=== PATIENT | female | born 1940 | race Caucasian/White ===

== ENCOUNTER 2017-01-01 18:58 | Emergency (ER) | payer MEDICARE ==
[~2017-01-01] VITALS: Ht 152.4 cm; Wt 40.9 kg
[~2017-01-01 18:58] MED LIST: ALBU8.5H2 INHALATION; AMLO5TAB2 PO; CITA20TA11 PO; DOCU240C41 PO; IBUP400T22 PO; KLO5T PO; LOPE1TAB13 PO; OMEP40CA3 PO; ONDA-53 PO; OXYC-466 PO; PHEN177L2 PO; POLY17PO6 PO; PRAM0.252 PO; PROP10TA8 PO; TIZA2CAP9 PO; VENL75TA3 PO; [UNRECOGNIZED DRUG - CODE] RC; [UNRECOGNIZED DRUG - REMARK] PO
[2017-01-01 19:02] VITALS: BP 134/69; PULSE 80; RESP 16; O2SAT 97
[2017-01-01 19:44] LABS: BASOPHILS % (AUTO) 0.3 % (0-3); EOSINOPHILS % (AUTO) 1.1 % (0-5); MONOCYTES % (AUTO) 11.7 % (4-12); Mean Corpuscular Hemoglobin 30.6 pg (27.0-35.0); Mean Corpuscular Volume 95.8 fL (81-100); NEUTROPHILS % (AUTO) 60.4 % (40-74); Platelet Count 347 bil/L (150-400)
[2017-01-01] MEDS ORDERED: Ondansetron 2 mg/mL 2 mL Inj IVPUSH PRN (19:50)
--- NOTE | 2017-01-01 19:57 | ED.REPORT ---
HPI-Back Pain 40 and Over Date of Service Jan 01, 2017 ED Provider: Dr. Moon Pt is a 76 year old female with a history of chronic back pain and metastatic colon CA who presents to the ED complaining of bilateral lower back pain that radiates to the lower abdomen onset 2 months ago worse for the past 2 days. She c/o associated constipation, urinary frequency and urgency, decreased urination , lightheadedness, generalized weakness, appetite change, diaphoresis, chills, and vomiting several times a day. Pt. denies change in chronic SOB and cough or any other symptoms at this time. Pt rates her back pain as 10/10 in severity at its worst. She has been taking her prescribed Oxycodone without relief. Oncologist: Dr. Meredith Nursing Notes Stated Complaint: BACK PAIN Chief Complaint: Female Abdominal Pain Nursing Notes Reviewed: Yes Allergies: Coded Allergies: nalbuphine (Verified Allergy, Intermediate, Hallucinations, 01/01/17) Sulfa (Sulfonamide Antibiotics) (Verified Allergy, Unknown, 01/01/17) Scheduled ([sleeping aid otc]) 2 CAPSULE PO HS Amlodipine (Amlodipine) 5 Mg Tablet 5 MG PO DAILY Citalopram (Citalopram) 20 Mg Tablet 20 MG PO DAILY Fentanyl 50 mcg/hr Patch (Fentanyl 50 mcg/hr Patch) 50 mcg/hr Patch.td72 1 PATCH TRANSDERM Q3D Ibuprofen (Ibuprofen) 400 Mg Tablet 400 MG PO TID Loperamide/Simethicone (Imodium Multi-Symptom Rel Cplt) 1 Each Tablet 1 EACH PO prn Omeprazole (Prilosec) 40 Mg Capsule. 40 MG PO DAILY Ondansetron (Ondansetron) 4 Mg Tablet 4-8 MG PO Q6 HOUR Pramipexole Dihydrochloride (Mirapex) 0.25 Mg Tablet 1-2 TAB PO HS Propranolol HCl (Propranolol HCl) 10 Mg Tablet 10 MG PO BID Tizanidine (Tizanidine) 2 Mg Capsule 2 MG PO HS Venlafaxine (Venlafaxine) 75 Mg Tablet 75 MG PO TID Scheduled PRN Albuterol HFA (Proair HFA) 8.5 Gm Hfa.aer.ad 2 PUFFS INHALATION QID PRN PRN For Congestion Clonazepam (Clonazepam) 0.5 Mg Tablet 0.5 MG PO QID PRN PRN For Anxiety Docusate Calcium (Stool Softener) 240 Mg Capsule 240 MG PO DIRECTED PRN PRN For Constipation Docusate Sodium/Benzocaine (Enemeez Plus Mini Enema) 5 Ml Enema 5 ML RC DIRECTED PRN PRN For Constipation Phenylephrine/Dm/Acetaminop/GG (Mucinex Lyxd-Sez-Hflzewvuly Lq) 177 Ml Liquid 177 ML PO DAILY PRN PRN cold Polyethylene Glycol 3350 (Miralax) 17 Gm Powd.pack 17 GM PO DIRECTED PRN PRN For Constipation oxyCODONE-Acetaminophen 10-325 mg (oxyCODONE-Acetaminophen 10-325 mg) 1 Each Tablet 1 TABLET PO BID PRN PRN For Pain General Time Seen by MD: 19:56 Chief Complaint Back pain Hx Obtained From: Patient Arrived By: Walk-in Sudden in Onset?: No Onset Occurred: More than a week ago... Symptom Duration: More than a week... (2 months) Location: : Perispinal lumbar Quality: Painful Radiation: : Abdomen Severity: Current: Moderate Severity: Maximum: Moderate Recent Healthcare: Recent doctor visit, Recent hospitalization, Previous diagnosis Similar Sx Previous: Yes Past Medical History Past Medical History 1. Degenerative disk disease of the lumbar. 2. Multiple external otitis of the left ear. 3. History of anxiety and depression. 4. Hypertension. 5. Hyperlipidemia. 6. Osteoporosis. 7. Restless legs syndrome. 8. Metastatic colon CA 9. History of right breast cancer 1995 treated with breast conservation therapy, adjuvant chemotherapy and hormonal therapy 10. Cervical spondylolysis 11. Anemia 12. History of TIA 13. History of GERD and Sotelo's esophagus 14. History of C. difficile in the past Reports: GERD Past Surgical History Port-A-Cath placement October 29, 2014 Status post laparoscopy followed by laparotomy, cholecystectomy, cholangiogram, and right hemicolectomy on 10/13/2014 Breast conservation surgery in 1995 for breast CA Cervical spine fusion in 2008 3 separate ear operations in the 1960s and 1980s Family History The patient's daughter has asthma, and patient's son has alcohol issues. Reviewed, not relevant Smoking History Former Smoker Social History Drug Use: Denies drug use Ambulatory Status Independent Review of Systems Constitutional: Reports: Chills, Weakness - generalized Respiratory: Denies: Non-productive cough, Shortness of breath GI: Reports: Abdominal pain, Anorexia, Constipation, Nausea, Vomiting Female: Reports: Urinary frequency, Urinary urgency, Urination decreased Musculoskeletal: Reports: Back pain Neurologic: Reports: Lightheaded Complete sys rev & neg: except as marked. Skin: Reports Diaphoresis Physical Exam Initial Vital Signs Vital Signs (First) Date Time Temp Pulse Resp B/P Pulse Ox O2 Delivery O2 Flow Rate FiO2 01/01/17 19:02 36.4 80 16 134/69 97 Room Air Initial VS: Reviewed, Vital signs normal Head / Eyes: Atraumatic, Normocephalic Neck: Supple, Full range of motion Extremities: Vascular intact, Neuro intact Skin: Warm, Dry, No cyanosis Psychiatric: Mood/affect normal, Behavior normal General/Constitutional: Awake, Alert, No acute distress, Cooperative, Not toxic appearing Respiratory / Chest: No respiratory distress Diminished Breath Sounds: Positive: Decreased bilateral Wheezing / Retractions: Positive: Wheezing expiratory (Increased on left ) Cardiovascular: Heart rate NL, Regular rhythm, Heart sounds NL, No murmurs Abdomen: Soft, No guarding, No rebound Tenderness/Guarding/Rebound: Positive: Tender suprapubic (mild) Back: Full range of motion, Painless range of motion Left-sided CVAT Neurologic: Oriented X3, Speech NL, No motor deficits, No sensory deficits, Memory NL ENT: Airway patent Mouth: Positive: Mucous membranes dry Interpretation & Diagnostics Lab Results Interpretation Result Diagram: 01/01/17192901/01/171929 Test 01/01/17 19:30 01/01/17 22:00 White Blood Count 7.4th/mm3 (3.8-10.1) Red Blood Count 3.59mil/mm3 (3.90-5.20) Hemoglobin 11.0g/dL (12.0-15.6) Hematocrit 34.4% (35.0-46.0) Mean Corpuscular Volume 95.8fL (81-100) Mean Corpuscular Hemoglobin 30.6pg (27.0-35.0) Mean Corpuscular Hemoglobin Concent 32.0% (32.0-37.0) Red Cell Distribution Width 14.9% (12.3-15.4) Platelet Count 347bil/L (150-400) Neutrophils (%) (Auto) 60.4% (40-74) Lymphocytes (%) (Auto) 26.2% (14-46) Monocytes (%) (Auto) 11.7% (4-12) Eosinophils (%) (Auto) 1.1% (0-5) Basophils (%) (Auto) 0.3% (0-3) Sodium Level 137mEq/L (134-144) Potassium Level 4.1mEq/L (3.5-5.2) Chloride Level 100mEq/L (97-108) Carbon Dioxide Level 23mmol/L (18-29) Blood Urea Nitrogen 17mg/dL (8-27) Creatinine 0.77mg/dL (0.57-1.00) Estimat Glomerular Filtration Rate 105mL/min (>59) Glucose Level 79mg/dL (60-99) Calcium Level 9.2mg/dL (8.5-10.1) Magnesium Level 2.4mg/dL (1.6-2.6) Total Bilirubin 0.2mg/dL (0.0-1.2) Aspartate Amino Transf (AST/SGOT) 27U/L (0-50) Alanine Aminotransferase (ALT/SGPT) 21U/L (0-32) Alkaline Phosphatase 617U/L (25-165) Total Protein 6.9g/dL (6.4-8.4) Albumin 3.6g/dL (3.4-5.0) Lipase 31U/L (13-60) Hold [place] Top Tube Received (Received) Urine Color Straw (YELLOW) Urine Appearance Clear (CLEAR,HAZY) Urine pH 6.5 (5.0-8.0) Urine Specific [place] 1.037 (1.003-1.035) Urine Protein Negativemg/dL (NEG,TRACE) Urine Glucose (UA) Negativemg/dL (NEGATIVE) Urine Ketones Negativemg/dL (NEGATIVE) Urine Occult Blood Negative (NEGATIVE) Urine Nitrite Negative (NEGATIVE) Urine Bilirubin Negative (NEGATIVE) Urine Urobilinogen Normalmg/dL (NORMAL) Urine Leukocyte Esterase Negative (NEGATIVE) Urine RBC 0-2/hpf (0-2) Urine WBC 0-5/hpf (0-5) Urine Epithelial Cells Occasional/hpf (NONE-MOD) Urine Crystals None seen (NONE SEEN) Urine Bacteria None/hpf (NONE-FEW) Urine Hyaline Casts None/lpf (NONE) Urine Granular Casts None seen (NONE SEEN) Urine Waxy Casts None seen (NONE SEEN) Urine Red Blood Cell Casts None seen (NONE SEEN) Urine White Blood Cell Casts None seen (NONE SEEN) Urine Mucus None seen (None Seen) Urine Trichomonas None seen (NONE SEEN) Urine Yeast None (NONE SEEN) Urinalysis Comment None Urine Culture Reflexed Not indicated CT Abd / Pelvis Interpretation IMPRESSION: 1. Increasing pulmonary, liver, retroperitoneal and peritoneal/omental metastasis. 2. Worsening abnormal enhancement in the kidneys right greater than left likely representing metastasis. Pyelonephritis is also possible. 3. Stable moderate intra-and extrahepatic biliary ductal dilatation and pancreatic ductal dilatation. Dictated by: José Luis Thomas M.D. on 01/01/2017 at 21:51 Approved by: José Luis Thomas M.D. on 01/01/2017 at 22:06 Study type: Abdominal CT IV contrast, Abdom CT oral contrast Interpretation / Wet Read by: Interpret - Radiologist Re-Eval/Medical Decision Med Decision/Clinical Course The patient has known metastatic cancer and is having poor pain control. She has bilateral flank pain worse on the left she does not have any signs of infection. CT shows that she has an infiltrative process of her kidneys which is likely related to her cancer. The patient had her medication changed to fentanyl and was discharged home. A partial list of differential diagnoses considered were pyelonephritis, metastatic disease to the spine, and metastatic disease to the retroperitoneum. Source of Hx: Old records Re-Evaluation/Progress : Time of Eval: 01:36 Patient Status: Moderate relief, Pain improved Re-Evaluation/Progress Note: Pt rechecked. Informed pt of plan for discharge. Pt understands and agrees with plan for discharge. F/U instructions and RTER warnings given. All questions addressed. Counseled Regarding: Diagnosis, Lab results, Need for follow-up, When/why to return to ED Discharge & Departure Impression: Primary Impression: Cancer related pain Disposition: Home Discharge Condition All VS Reviewed: Yes Condition: Stable Patient Instructions: Back Pain (ED) Additional Instructions: The cause of your pain is uncertain but likely related to cancer. Change the Fentanyl patch every 3 days. Make sure to remove the old patch before applying the new. Continue to take immediate acting oxycodone but stop the long acting OxyContin. Make an appointment to meet with Dr. Meredith next week to discuss today's visit and imaging. Return to the emergency department if you experience fever or any new or worsening symptoms. Referrals: Austin Lawton MD (PCP) Kyraibyuki Attestation Portions of this note were transcribed by Ling Mills and Geraldo Douglass. I, Dr. Moon personally performed the history, physical exam and medical decision- making; I reviewed and confirmed the accuracy of the information in the transcribed note. Signed by: Stanley Ríos, 01/01/17 copies to: Austin Lawton MD, Jena M MD Jan 01, 2017 19:57 Ling Mills Jan 01, 2017 20:09 GERALDO DOUGLASS Jan 01, 2017 21:06
[2017-01-01] MEDS: HYDROmorphone 0.5 mg/0.5 mL iSecure Syringe IVPUSH PRN ×3 (19:59→21:46)
[2017-01-01 20:09] LABS: Magnesium 2.4 mg/dL (1.6-2.6)
[2017-01-01] MEDS ORDERED: 0.9% Sodium Chloride 1,000 ML IV ONE (20:20)
[2017-01-01] MEDS ORDERED: Iohexol 300 mg/mL 30 mL Inj PO ONE (20:20)
--- NOTE | 2017-01-01 22:07 | DRSVH ---
PROCEDURE: CT ABDOMEN AND PELVIS WITH CONTRAST ([id number]) INDICATIONS: colon CA with increased pain TECHNIQUE: After the administration of oral and intravenous contrast, 5 mm thick sections acquired from the diap hragms to the symphysis. 5 mm thick coronal and sagittal reformats were performed. For radiation do se reduction, the following was used: automated exposure control, adjustment of mA and/or kV accordi ng to patient size. COMPARISON: 11/27/2016 CT FINDINGS: Image quality: Excellent. ABDOMEN: Lung bases: Increase in size of innumerable bibasilar pulmonary nodules. Normal heart size.. Solid organs: Stable moderate intrahepatic biliary ductal dilatation and pancreatic ductal dilatation . There are now four ill-defined right lobe of the liver hepatic masses the largest of which is incre ased in size measuring 2.4 CM consistent with metastasis. The pancreas itself, spleen, and adrenal gl ands are normal. Heterogeneous abnormal right renal parenchymal enhancement most consistent with hypo enhancing masses. Similar but less prominent findings in the left kidney. No hydronephrosis. Peritoneum and bowel: The colon contains a moderate amount of stool. Small bowel is normal. Appendix not identified. There are no secondary signs of appendicitis. There is fluid in the pelvis with nodul ar thickening in the peritoneal cul-de-sac the largest of which measures 1.5 CM. Small omental metast asis. Nodes and vessels: Moderate retroperitoneal lymphadenopathy exerts mass effect upon the distal infer ior vena cava which is poorly seen.. Miscellaneous: No ventral hernias. PELVIS: Genitourinary: Bladder wall thickness is normal. Miscellaneous: No inguinal hernias or adenopathy. Bones: No suspicious bony lesions. No vertebral body compression fractures. IMPRESSION: 1. Increasing pulmonary, liver, retroperitoneal and peritoneal/omental metastasis. 2. Worsening abnormal enhancement in the kidneys right greater than left likely representing metastas is. Pyelonephritis is also possible. 3. Stable moderate intra-and extrahepatic biliary ductal dilatation and pancreatic ductal dilatation. Dictated by: José Luis Thomas M.D. on 01/01/2017 at 21:51 Approved by: José Luis Thomas M.D. on 01/01/2017 at 22:06
[2017-01-01 22:43] LABS: APPEARANCE,URINE CLEAR (CLEAR,HAZY); COLOR,URINE STRAW (YELLOW); OCCULT BLOOD,URINE NEGATIVE (NEGATIVE); PH,URINE 6.5 (5.0-8.0); UROBILINOGEN,URINE NORMAL (NORMAL)
[2017-01-01 23:43] VITALS: BP 154/82; PULSE 82; RESP 18; O2SAT 95
[2017-01-02] MEDS ORDERED: FENT1PAT9 TRANSDERM (01:39)
[2017-01-02] MEDS ORDERED: HepLOK Flush 100 unit/mL 5 mL Inj ONE (01:50)
[2017-01-02 01:57] VITALS: BP 145/84; PULSE 95; RESP 18; O2SAT 97
== END 2017-01-02 01:58 | disposition home or self-care (01) ==
LOC: SED 18:58
DX: G89.3 Neoplasm related pain (acute) (chronic) (principal); M54.5 Low back pain; E78.5 Hyperlipidemia, unspecified; F32.9 Major depressive disorder, single episode, unspecified; I10 Essential (primary) hypertension; K21.9 Gastro-esophageal reflux disease without esophagitis; F41.9 Anxiety disorder, unspecified; Z88.2 Allergy status to sulfonamides; Z85.038 Personal history of other malignant neoplasm of large intestine; Z85.3 Personal history of malignant neoplasm of breast; Z86.73 Personal history of transient ischemic attack (TIA), and cerebral infarction without residual deficits; Z88.8 Allergy status to other drugs, medicaments and biological substances; Z87.891 Personal history of nicotine dependence
CPT/HCPCS: 36415; 74177; 80053; 81000; 83690; 83735; 85025; 96361; 96374; 96375; 99285; J1170; J1642; J2405; J7030; Q9967

== ENCOUNTER 2017-01-19 13:18 | Observation (INO) | payer MEDICARE ==
[~2017-01-19] VITALS: Ht 152.4 cm; Wt 43.2 kg
[~2017-01-19 13:18] MED LIST changes: +FENT1PAT9 TRANSDERM
[2017-01-19 13:50] VITALS: BP 106/65; PULSE 88; RESP 16; O2SAT 96
--- NOTE | 2017-01-19 14:07 | ED.REPORT ---
HPI-Abd Pain F 40 and Over Date of Service Jan 19, 2017 ED Provider: Yon Martines DO Pt is a 76 y/o female w/ a hx of metastatic colon CA on experimental therapy, prior R breast CA, DDD of lumbar spine, osteoporosis, HTN, HLD, presenting to the ED c/o intractable lower abdominal pain with radiation to the back. The patient has been seeing palliative care physician Dr. Lazo regarding her colon cancer-related abdominal and back pain and is being treated with Fentanyl patches and Oxycodone PRN. Per her note there is a concern that her son may be stealing some of the patches for his own use as he is an alleged active heroin user. She has also been experiencing anorexia, nausea, vomiting, and diarrhea after taking laxatives. She mostly vomits after eating. Her pain today is similar to what it has been previously but remains to be uncontrolled. She denies SOB, cough, fever. She was seen by Dr. Lazo today and recommended that she come here to the ED. Nursing Notes Stated Complaint: PAIN Chief Complaint: Female Abdominal Pain Nursing Notes Reviewed: Yes Allergies: Coded Allergies: Sulfa (Sulfonamide Antibiotics) (Verified Allergy, Unknown, 01/19/17) nalbuphine (Verified Adverse Reaction, Intermediate, Hallucinations, ) Scheduled ([sleeping aid otc]) 2 CAPSULE PO HS Amlodipine (Amlodipine) 5 Mg Tablet 5 MG PO DAILY Citalopram (Citalopram) 20 Mg Tablet 20 MG PO DAILY Fentanyl 50 mcg/hr Patch (Fentanyl 50 mcg/hr Patch) 50 mcg/hr Patch.td72 1 PATCH TRANSDERM Q3D Ibuprofen (Ibuprofen) 400 Mg Tablet 400 MG PO TID Loperamide/Simethicone (Imodium Multi-Symptom Rel Cplt) 1 Each Tablet 1 EACH PO prn Omeprazole (Prilosec) 40 Mg Capsule.dr 40 MG PO DAILY Ondansetron (Ondansetron) 4 Mg Tablet 4-8 MG PO Q6 HOUR Pramipexole Dihydrochloride (Mirapex) 0.25 Mg Tablet 1-2 TAB PO HS Propranolol HCl (Propranolol HCl) 10 Mg Tablet 10 MG PO BID Tizanidine (Tizanidine) 2 Mg Capsule 2 MG PO HS Venlafaxine (Venlafaxine) 75 Mg Tablet 75 MG PO TID Scheduled PRN Albuterol HFA (Proair HFA) 8.5 Gm Hfa.aer.ad 2 PUFFS INHALATION QID PRN PRN For Congestion Clonazepam (Clonazepam) 0.5 Mg Tablet 0.5 MG PO QID PRN PRN For Anxiety Docusate Calcium (Stool Softener) 240 Mg Capsule 240 MG PO DIRECTED PRN PRN For Constipation Docusate Sodium/Benzocaine (Enemeez Plus Mini Enema) 5 Ml Enema 5 ML RC DIRECTED PRN PRN For Constipation Phenylephrine/Dm/Acetaminop/GG (Mucinex Hjct-Xqq-Zohoznbcio Lq) 177 Ml Liquid 177 ML PO DAILY PRN PRN cold Polyethylene Glycol 3350 (Miralax) 17 Gm Powd.pack 17 GM PO DIRECTED PRN PRN For Constipation oxyCODONE-Acetaminophen 10-325 mg (oxyCODONE-Acetaminophen 10-325 mg) 1 Each Tablet 1 TABLET PO BID PRN PRN For Pain General Time Seen by MD: 14:05 Chief Complaint Abdominal pain Hx Obtained From: Patient Arrived By: Walk-in Sudden in Onset?: No Onset Occurred: Onset unknown Symptom Duration: Since onset Progression since Onset: Constant Location: : Abdomen lower Quality: Painful Radiation: : Back Severity: Current: Pain level 8 out of 10 Severity: Maximum: Pain level 10 out of 10 Recent Healthcare: Previous diagnosis Similar Sx Previous: Yes Past Medical History Past Medical History Notes: Oncologist: Masoud Palliative care: Keesha Lazo Past Medical History 1. Degenerative disk disease of the lumbar. 2. Multiple external otitis of the left ear. 3. History of anxiety and depression. 4. Hypertension. 5. Hyperlipidemia. 6. Osteoporosis. 7. Restless legs syndrome. 8. Metastatic colon CA 9. History of right breast cancer 1995 treated with breast conservation therapy, adjuvant chemotherapy and hormonal therapy 10. Cervical spondylolysis 11. Anemia 12. History of TIA 13. History of GERD and Sotelo's esophagus 14. History of C. difficile in the past Past Surgical History Port-A-Cath placement October 29, 2014 Status post laparoscopy followed by laparotomy, cholecystectomy, cholangiogram, and right hemicolectomy on 10/13/2014 Breast conservation surgery in 1995 for breast CA Cervical spine fusion in 2008 3 separate ear operations in the 1960s and 1980s Family History The patient's daughter has asthma, and patient's son has alcohol issues. Reviewed, not relevant Smoking History Former Smoker Social History Drug Use: Denies drug use Ambulatory Status Independent Review of Systems Constitutional: Denies: Fever Respiratory: Denies: Non-productive cough, Shortness of breath GI: Reports: Abdominal pain, Anorexia, Constipation, Nausea, Vomiting Musculoskeletal: Reports: Lumbar pain Complete sys rev & neg: except as marked. Physical Exam Vital Signs Vital Signs (First) Date Time Temp Pulse Resp B/P Pulse Ox O2 Delivery O2 Flow Rate FiO2 01/19/17 13:50 36.6 88 16 106/65 96 Room Air Initial VS: Reviewed, Vital signs normal Head / Eyes: Atraumatic, Normocephalic ENT: Mucous membranes moist, Conjunctiva normal Neck: Supple, Full range of motion Extremities: Vascular intact, Neuro intact, No swelling Skin: Warm, Dry, No cyanosis Neurologic: Alert, Oriented, Nonfocal Psychiatric: Mood/affect normal, Behavior normal, Normal thought content General/Constitutional: Awake, Alert, Cooperative, Not toxic appearing Distress / Hydration: Positive: Distress moderate Appearance / Presentation: Positive: Cachectic, Frail, In pain, Uncomfortable, Underweight Respiratory / Chest: Breath sounds NL, Breath sounds = bilat, No respiratory distress, No rales, No rhonchi, No wheezing Cardiovascular: Heart rate NL, Regular rhythm, Heart sounds NL, No murmurs Abdomen: Soft, No guarding, No rebound, No distention Lower abdominal tenderness Back: Atraumatic, No midline vertebral tend Bilateral flank tenderness Interpretation & Diagnostics Lab Results Interpretation Result Diagram: 01/19/17 1525 01/19/17 1525 Test 01/19/17 15:25 White Blood Count 7.8th/mm3 (3.8-10.1) Red Blood Count 3.75mil/mm3 (3.90-5.20) Hemoglobin 11.2g/dL (12.0-15.6) Hematocrit 35.3% (35.0-46.0) Mean Corpuscular Volume 94.1fL (81-100) Mean Corpuscular Hemoglobin 29.9pg (27.0-35.0) Mean Corpuscular Hemoglobin Concent 31.7% (32.0-37.0) Red Cell Distribution Width 14.9% (12.3-15.4) Platelet Count 366bil/L (150-400) Neutrophils (%) (Auto) 77.6% (40-74) Lymphocytes (%) (Auto) 16.3% (14-46) Monocytes (%) (Auto) 4.9% (4-12) Eosinophils (%) (Auto) 0.5% (0-5) Basophils (%) (Auto) 0.3% (0-3) Sodium Level 136mEq/L (134-144) Potassium Level 4.3mEq/L (3.5-5.2) Chloride Level 95mEq/L (97-108) Carbon Dioxide Level 26mmol/L (18-29) Blood Urea Nitrogen 21mg/dL (8-27) Creatinine 0.86mg/dL (0.57-1.00) Estimat Glomerular Filtration Rate 92mL/min (>59) Glucose Level 98mg/dL (60-99) Calcium Level 9.4mg/dL (8.5-10.1) Total Bilirubin 0.3mg/dL (0.0-1.2) Aspartate Amino Transf (AST/SGOT) 21U/L (0-50) Alanine Aminotransferase (ALT/SGPT) 11U/L (0-32) Alkaline Phosphatase 487U/L (25-165) Total Protein 7.5g/dL (6.4-8.4) Albumin 3.5g/dL (3.4-5.0) Hold [place] Top Tube Received (Received) X-Ray Abdominal Interpretation IMPRESSION: Prominent bowel loops with air-fluid levels most suggestive of partial obstruction. No significant stool is identified. Dictated by: Cara Riojas M.D. on 01/19/2017 at 15:56 Approved by: Cara Riojas M.D. on 01/19/2017 at 15:57 Study: 4 view, Erect, Supine Interpretation / Wet Read by: Interpret - Radiologist Re-Eval/Medical Decision Med Decision/Clinical Course Concern for partial SBO which is causing acute on chronic abdominal pain. Will admit. Patient declines NG tube at this time. Re-Evaluation/Progress : Time of Eval: 16:06 Re-Evaluation/Progress Note: Pt rechecked. Informed pt of need for admission due to SBO. Pt understands and agrees with plan for admission. All questions addressed. Consultation #1: Referral / Consult Name: Keesha Lazo MD Call Returned at: 14:49 Film Cleaner: Agrees with eval, Agrees with plan Note: Case discussed with palliative care. Recommends increase Fentanyl patch, obtain labs and XR abd. Will consult as an inpatient. Consultation #2: Referral / Consult Name: Rudolph Michael MD Consulted With: Hospitalist Call Returned at: 16:25 Film Cleaner: Will see patient, Agrees with eval, Agrees with plan, Accepts admit Counseled Regarding: Diagnosis, Lab results, Need for admission Discharge & Departure Primary Impression: Partial small bowel obstruction Additional Impressions: Colon cancer metastasized to multiple sites Cancer related pain Disposition: ADMITTED TO HOSPITAL Discharge Condition All VS Reviewed: Yes Condition: Stable Referrals: Austin Lawton MD (PCP) Keesha Lazo MD Scribe Attestation Portions of this note were transcribed by Geraldo Douglass. I, Dr. Martines personally performed the history, physical exam and medical decision-making; I reviewed and confirmed the accuracy of the information in the transcribed note. copies to: Austin Lawton MD; Keesha Lazo MD, Timothy S DO Jan 19, 2017 14:07 GERALDO DOUGLASS Jan 19, 2017 14:21
[2017-01-19] MEDS ORDERED: 0.9% Sodium Chloride 500 ML IV ONE (14:50)
[2017-01-19] MEDS: fentaNYL-PF 50 mCg/mL 2 mL Inj IVPUSH PRN ×2 (15:01→16:00)
[2017-01-19 15:33] LABS: BASOPHILS % (AUTO) 0.3 % (0-3); EOSINOPHILS % (AUTO) 0.5 % (0-5); MONOCYTES % (AUTO) 4.9 % (4-12); Mean Corpuscular Hemoglobin 29.9 pg (27.0-35.0); Mean Corpuscular Volume 94.1 fL (81-100); NEUTROPHILS % (AUTO) 77.6 % (40-74); Platelet Count 366 bil/L (150-400)
--- NOTE | 2017-01-19 15:59 | DRSVH ---
PROCEDURE: X-RAY ACUTE ABDOMINAL SERIES ([id number]) INDICATIONS: constipation, CA patient TECHNIQUE: One view chest and two views of the abdomen were acquired. COMPARISON: [facility], CT, CT CHEST ABD PELVIS W CON, 12/07/2016, 8:42. Merged With [facility], CR, ABD ACUTE SERIES, 10/06/2014, 6:39. FINDINGS: Surgical changes and devices: Cholecystectomy clips. Chest: Innumerable bilateral pulmonary nodules are again identified. Heart size is normal. No pleura l effusions. No pneumoperitoneum. Abdomen: Bowel gas pattern demonstrates scattered prominent bowel loops with air-fluid levels. No peoples spicious calcifications. Visualized solid organ contours appear normal. Bones: No suspicious bony lesions. IMPRESSION: Prominent bowel loops with air-fluid levels most suggestive of partial obstruction. No si gnificant stool is identified. Dictated by: Cara Riojas M.D. on 01/19/2017 at 15:56 Approved by: Cara Riojas M.D. on 01/19/2017 at 15:57
[2017-01-19] MEDS ORDERED: Alum-Mag Hydrox-Simeth 30 mL Suspension PO PRN (16:40)
[2017-01-19] MEDS ORDERED: Ondansetron 2 mg/mL 2 mL Inj IVPUSH PRN (16:40)
[2017-01-19] MEDS: 0.9% Sodium Chloride 1,000 ML IV SCH (16:42)
--- NOTE | 2017-01-19 16:52 | PCM.HPMED ---
Subjective Date of Service Jan 19, 2017 Primary Provider: Admitting Physician: Primary Care Physician: Austin Lawton MD Attending Physician: History of Present Illness: From ER, palliative care notes, and chart: 76 y/o female w/ a hx of metastatic colon CA on experimental therapy, prior R breast CA, DDD of lumbar spine, osteoporosis, HTN, HLD, presenting to the ED c/ o intractable lower abdominal pain with radiation to the back. The patient has been seeing palliative care physician Dr. Lazo regarding her colon cancer- related abdominal and back pain and is being treated with Fentanyl patches and Oxycodone PRN. She was at the clinic today, and was not feeling good hence was sent to ER. She said she feels discomfort due her constipation, however adds that she was doing fleet enemas couple of days ago, and ended up having diarrhea at that time. She did no have any bowel movements yesterday.She denied nausea or vomiting. In ER, during examination, she ended up having a diarrhea. Allergies Coded Allergies: Sulfa (Sulfonamide Antibiotics) (Verified Allergy, Unknown, 01/19/17) nalbuphine (Verified Adverse Reaction, Intermediate, Hallucinations, ) Constitutional: : Weakness Eyes: No: Conjunctivae inflammation, Eyelid inflammation, Other, Pain, Redness , Vision change Respiratory: No: Cough, Dry, Hemoptysis, Other, Pleuritic Pain, SOB with excertion, Shortness of breath, Sputum, Wheezing, Wheezing Cardiovascular: No: Chest Pain, Edema, Lt Headedness, Orthopnea, Other, Palpitations, Paroxysmal Noc. Dyspnea Gastrointestinal: : Other (as per HPI) Genitourinary: Negative for: Dysuria, Frequency, Hematuria, Incontinence, Other , Retention Musculoskeletal: No: arm pain, back pain, foot pain, hand pain, leg pain, neck pain, other, shoulder pain Skin: No: Bruising, Jaundice, Lesions, Other, Rash Neurological: No: Change in speech, Confusion, Incoordination, Numbness, Other , Seizures, Weakness Home Meds Active Scripts Fentanyl 50 mcg/hr Patch 50 mcg/hr Patch.[id number] Patch TRANSDERM Q3D #4 PATCH Ref 0 Prov:Nevin Moon MD 01/02/17 Reported Medications Docusate Calcium (Stool Softener)240 Mg Qkqeqzq044 Mg PO DIRECTED PRN For Constipation 10/02/16 Docusate Sodium/Benzocaine (Enemeez Plus Mini Enema)5 Ml Enema5 Ml RC DIRECTED PRN For Constipation 10/02/16 Polyethylene Glycol 3350 (Miralax)17 Gm Powd.pack17 Gm PO DIRECTED PRN For Constipation 10/02/16 Phenylephrine/Dm/Acetaminop/GG (Mucinex Qvnt-Mzj-Slzaahjujd Lq)177 Ml Hjwgld066 Ml PO DAILY PRN cold 08/21/16 [sleeping aid otc] No Conflict Check2 Capsule PO HS 12/27/15 Tizanidine 2 Mg Capsule2 Mg PO HS #60 CAPSULE 11/29/15 Citalopram 20 Mg Hovujm06 Mg PO DAILY Ref 0 11/29/15 Albuterol HFA (Proair HFA)8.5 Gm Hfa.aer.ad2 Puffs INHALATION QID PRN For Congestion #1 INHALER Ref 1 08/30/15 Ibuprofen 400 Mg Rpaogb401 Mg PO TID For Pain Ref 0 05/10/15 Amlodipine 5 Mg Tablet5 Mg PO DAILY Ref 0 05/10/15 oxyCODONE-Acetaminophen 10-325 mg 1 Each Tablet1 Tablet PO BID PRN For Pain # 120 TABLET Ref 0 05/10/15 Loperamide/Simethicone (Imodium Multi-Symptom Rel Cplt)1 Each Tablet1 Each PO prn 03/14/15 Clonazepam 0.5 Mg Tablet0.5 Mg PO QID PRN For Anxiety Ref 0 03/14/15 Venlafaxine 75 Mg Jvzzvz11 Mg PO TID Ref 0 02/14/15 Ondansetron 4 Mg Tablet4-8 Mg PO Q6 HOUR 02/14/15 Propranolol HCl 10 Mg Nzpjqb97 Mg PO BID 90 Days Ref 0 02/14/15 Pramipexole Dihydrochloride (Mirapex)0.25 Mg Tablet1-2 Tab PO HS 09/14/14 Omeprazole (Prilosec)40 Mg Capsule.dr40 Mg PO DAILY #90 CAPSULE Ref 2 09/14/14 PMH 1. Degenerative disk disease of the lumbar. 2. Multiple external otitis of the left ear. 3. History of anxiety and depression. 4. Hypertension. 5. Hyperlipidemia. 6. Osteoporosis. 7. Restless legs syndrome. 8. Metastatic colon CA 9. History of right breast cancer 1996 treated with breast conservation therapy, adjuvant chemotherapy and hormonal therapy 10. Cervical spondylolysis 11. Anemia 12. History of TIA 13. History of GERD and Sotelo's esophagus 14. History of C. difficile in the past Reports: GERD Surgical History Port-A-Cath placement October 29, 2014 Status post laparoscopy followed by laparotomy, cholecystectomy, cholangiogram, and right hemicolectomy on 10/13/2014 Breast conservation surgery in 1995 for breast CA Cervical spine fusion in 2008 3 separate ear operations in the and Social History Hx Alcohol Use: Yes (occasional) Hx Substance Use: Yes (marijuana) Hx Tobacco Use: Yes Smoking Status: Former Smoker Exam Vital Signs Vital Sign - Last Date Time Temp Pulse Resp B/P Pulse Ox O2 Delivery O2 Flow Rate FiO2 01/19/17 13:50 36.6 88 16 106/65 96 Room Air Exam Head / Eyes: Atraumatic, Normocephali ENT: Mucous membranes moist, Conjunctiva normal Neck: Supple, Full range of motion Extremities: Vascular intact, Neuro intact, No swelling Skin: Warm, Dry, No cyanosis Neurologic: Alert, Oriented, Nonfocal Psychiatric: Mood/affect normal, Behavior normal, Normal thought content General/Constitutional: Awake, Alert, Cooperative, Not toxic appearing Distress / Hydration: Positive: Distress moderate Appearance / Presentation: Positive: Cachectic, Frail, In pain, Uncomfortable, Underweight Respiratory / Chest: Breath sounds NL, Breath sounds = bilat, No respiratory distress, No rales, No rhonchi, No wheezing Cardiovascular: Heart rate NL, Regular rhythm, Heart sounds NL, No murmurs Abdomen: Soft, No guarding, No rebound, No distention. BS+ Lab and Diagnostics Result Diagram: 01/19/17 1525 01/19/17 1525 X-Rays, CTs and MRIs Abd XR IMPRESSION: Prominent bowel loops with air-fluid levels most suggestive of partial obstruction. No significant stool is identified. Assessment & Plan 76 y/o female w/ a hx of metastatic colon CA on experimental therapy, prior R breast CA, DDD of lumbar spine, osteoporosis, HTN, HLD, being admitted for pain control. Pain secondary to metastatic cancer - saw Dr. Lazo recommendation from a patient, - start patient on 125 g fentanyl patch, oxycodone PRN, naloxone if patient goes into respiratory depression or loses consciousness -palliative consult with Dr. Lazo Constipation - patient had lose ball movement in ER - abdominal x-ray noticed - she denied nausea or vomiting, will start her on clear liquid diet, advance as tolerated Dehydration -likely secondary to Fleet enemas she did at home -will gently hydrate her with normal saline Anxiety -clonazepam home dose Hypertension -restart home meds: amlodipine Depression -restart home meds: citalopram, venlafaxine DVD prophylaxis: heparin G.I. prophylaxis: pantoprazole, Zofran PRN Patient likely to stay less than 2 nights in observation Pain Evaluation: Adequate Pain Control VTE Prophylaxis: Sub-Q Heparin (Unfractionated) Time spent 35 mins Rudolph Michael MD Jan 19, 2017 16:52
[2017-01-19 17:27] VITALS: BP 121/53; PULSE 73; RESP 16; O2SAT 100
[2017-01-19 17:29] VITALS: BP 121/53; PULSE 73; RESP 16; O2SAT 100
[2017-01-19] MEDS: oxyCODONE-Acetamin 10-325 mg Tablet PO PRN (18:10)
[2017-01-19] MEDS: Polyethylene Glycol (PEG) 17 Gm Powder PO PRN (18:11)
[2017-01-19] MEDS ORDERED: OMEP40CA36 PO (18:31)
[2017-01-19] MEDS ORDERED: LISI-571 PO (18:31)
[2017-01-19] MEDS ORDERED: ONDA-54 PO (18:31)
[2017-01-19] MEDS ORDERED: FENT-2 TRANSDERM (18:31)
[2017-01-19] MEDS ORDERED: ACET-2605 PO (18:31)
[2017-01-19] MEDS ORDERED: GABA-500 PO (18:31)
[2017-01-19] MEDS ORDERED: Albuterol 2.5 mg/3 mL Inhalation Solution NEB PRN (20:00)
[2017-01-19 20:59] VITALS: BP 125/66; PULSE 73; RESP 18; O2SAT 94
[2017-01-19] MEDS: Alum-Mag Hydrox-Simeth 30 mL Suspension PO PRN (22:54)
[2017-01-20] MEDS: Heparin 5,000 Unit/mL Inj SUBQ SCH ×3 (00:36→17:01)
[2017-01-20 02:14] VITALS: BP 162/81; PULSE 85; RESP 20; O2SAT 94
[2017-01-20 05:43] VITALS: BP 145/74; PULSE 80; RESP 16; O2SAT 95
[2017-01-20] MEDS: oxyCODONE-Acetamin 10-325 mg Tablet PO PRN (06:19)
[2017-01-20] MEDS: Pantoprazole 40 mg ER24 Tablet PO SCH (06:23)
[2017-01-20 06:59] LABS: BASOPHILS % (AUTO) 0.4 % (0-3); EOSINOPHILS % (AUTO) 1.1 % (0-5); MONOCYTES % (AUTO) 5.5 % (4-12); Mean Corpuscular Hemoglobin 29.9 pg (27.0-35.0); Mean Corpuscular Volume 94.6 fL (81-100); NEUTROPHILS % (AUTO) 73.4 % (40-74); Platelet Count 320 bil/L (150-400)
[2017-01-20] MEDS: Ondansetron 2 mg/mL 2 mL Inj IVPUSH PRN (09:23)
[2017-01-20 10:18] VITALS: BP 166/89; PULSE 96; RESP 18; O2SAT 95
[2017-01-20] MEDS: Lactulose 20 Gm/30 mL 30 mL Syrup PO SCH ×3 (11:57→20:42)
--- NOTE | 2017-01-20 13:20 | PCM.PNMED ---
Subjective Date of Service Jan 20, 2017 Subjective Patietn feels better, palliative medicine team saw the patient Exam Vital Signs Vital Sign - Last Date Time Temp Pulse Resp B/P Pulse Ox O2 Delivery O2 Flow Rate FiO2 01/20/17 10:18 36.8 96 18 166/89 95 Room Air Intake and Output 01/19/17 01/19/17 01/20/17 Cumulative From/Thru 15:00 23:00 07:00 01/19/17 13:50 - 01/20/17 05:39 Intake Total 500 ml 800 ml 1300 ml Output Total 150 ml 150 ml Balance 500 ml 650 ml 1150 ml Intake Oral 250 ml 250 ml IV Total 500 ml 550 ml 1050 ml Output Urine Total 150 ml 150 ml # Voids 2 2 Exam PHYSICAL EXAM: GENERAL: Alert, not in distress, thin, weak HEAD: atraumatic, normocephalic, no bruises. EYES: [place], EOMI, anicteric, able to fully open and close eyelids SKIN: Skin color normal, turgor normal. No visible rashes or lesions. EAR, NOSE, MOUTH, THROAT: Lips, oral mucosa, tongue gums, oropharynx are moist , pink, no lesions. Ears normal appearance, no lesions. NECK: supple ROM normal. RESPIRATORY: Lungs clear to auscultation. Good diaphragmatic excursion. Normal percussion sound. CARDIAC: normal S1 and S2; no rubs, murmurs, or gallops; regular rate and rhythm ABDOMEN: Abdomen soft, non-tender. BS normal. No masses or organomegaly. MUSCULOSKELETAL: ROM full, muscles are not tender, MSK pain present EXTREMITIES: no pitting edema in LE, no new deformities or skin discoloration. NEURO: Alert, oriented X 3, Cranial nerves II-XII intact, Grossly normal motor function. PULSES: 2+ radial, 2+ carotid REVIEW OF SYSTEMS: GENERAL: + malaise, no fevers., SEE HPI HEENT: Negative for frequent or significant headaches All other reviewed and negative other than HPI. IVs and Medications Medications Reviewed: Medications were reviewed in detail Lab and Diagnostics Result Diagram: 01/20/17 0640 01/20/17 0640 X-Rays, CTs and MRIs Abd XR IMPRESSION: Prominent bowel loops with air-fluid levels most suggestive of partial obstruction. No significant stool is identified. Assessment & Plan 76 y/o female w/ a hx of metastatic colon CA on experimental therapy, prior R breast CA, DDD of lumbar spine, osteoporosis, HTN, HLD, being admitted for pain control. Pain secondary to metastatic cancer - improving, present - saw Dr. Lazo recommendation from a patient, -palliative consult with Dr. Lazo Plan - c/w pain meds Elevated Alk Ph - chronic - monitor Constipation - stable - c/w current meds Dehydration -likely secondary to Fleet enemas she did at home Anxiety - stable -clonazepam home dose Hypertension - c/w home meds Depression -restart home meds: citalopram, venlafaxine DVD prophylaxis: heparin G.I. prophylaxis: pantoprazole, Zofran PRN VTE Prophylaxis: Sub-Q Heparin (Unfractionated) Smith Torres MD Jan 20, 2017 13:20
--- NOTE | 2017-01-20 13:32 | PCM.CONPAL ---
Date of Service Jan 20, 2017 Date of Hospital Admission: Jan 19, 2017 at 17:06 Date of Palliative Consult: Jan 20, 2017 Requesting Provider: Rudolph Michael MD Reason Palliative Care Consult: Pain Hospital Unit @time of consult: Other (MOC) Palliative Care Recommendation Summary of palliative recommendations: -Symptom management (Pain/other)- continue fentanyl patch 125 g. Oxycodone IR 20 mg PO every 3 hours as needed for breakthrough. For her chronic constipation, restart senna scheduled BID and lactulose 10 g/15 mL TID, with titration as needed Dexamethasone 4 mg QAM Clonazepam, citalopram and venlafaxine as before -DPOA/Advanced Directives/POLST- likely transition to hospice care in the near future. Patient awaiting further discussion with her oncologist before finalizing plans. Per conversations with Dr. Lazo on 01/19, CODE STATUS updated to DO NOT RESUSCITATE/DO NOT INTUBATE. She has not yet completed a POLST -Family/emotional support- palliative medicine will continue to follow and provide support. Good support from her , though family situation at home is otherwise complex. Again, see Dr. Lazo's note of 01/19 for details Additional Medical Diagnoses with primary management by Hospitalist team include : Pain secondary to metastatic cancer Constipation Dehydration Anxiety Hypertension Depression Problems: End of Life Preferences DO NOT RESUSCITATE/DO NOT INTUBATE Disposition Probably home Resuscitation Status Resuscitation Status: DNR/DNI:Do Not Resuscitate/Intubate POLST Updates/Changes Previous POLST?: No . Pain: Moderate Symptom management: Anxiety, Pain, Constipation Pt History History of Present Illness Per admission H&P: 76 y/o female w/ a hx of metastatic colon CA on experimental therapy, prior R breast CA, DDD of lumbar spine, osteoporosis, HTN, HLD, presenting to the ED c/ o intractable lower abdominal pain with radiation to the back. The patient has been seeing palliative care physician Dr. Lazo regarding her colon cancer- related abdominal and back pain and is being treated with Fentanyl patches and Oxycodone PRN. She was at the clinic today, and was not feeling good hence was sent to ER. She said she feels discomfort due her constipation, however adds that she was doing fleet enemas couple of days ago, and ended up having diarrhea at that time. She did no have any bowel movements yesterday.She denied nausea or vomiting. In ER, during examination, she ended up having a diarrhea. Palliative medicine consult to assist with symptom management and review of goals of care. Patient well-known to the palliative service from previous admissions and from outpatient visit on day of this admission. Prior to visiting patient, I reviewed her records in detail in the EMR, spoke with her other palliative provider, and with her bedside nurse. Also reviewed recommendations by Dr. Lazo documented on 01/19 When I arrived, patient is sitting at bedside complaining of pain. She denied any undue dyspnea. She also noted anxiety. Talked with her about findings in the emergency department- x-rays suggested possible bowel obstruction but clinical picture more consistent with her chronic discomfort and ileus secondary to chronic narcotic use. She immediately responded positively when I reassured her that we would increase her pain medications to the level recommended by Dr. Lazo yesterday. She was also pleased to hear that her oncologist Dr. Meredith would visit later today. Per Dr. Lazo's note of 01/19: -Symptom management (Pain/other) Pain--not controlled. At this point I wonder if she is absorbing her fentanyl patch (started at her last visit to ER) with how thin she is but would be very concerned re methadone due to her inappropriate use of her patches. She did not think her oxycontin was of benefit--? if dosing or med Not using breakthrough but not in control without it She feels she needs to go to the ER for control (hoping for admission). This would allow for manipulation of her med possibly over to methadone. Alternatively I would give 1 more try with her fentanyl and increase it to 125 mcg--given script for 2 patches each of 100 mcg and 25 mcg. she has a 75 and 50 mcg at home and her understands this. If at home will review this in 2-3 days and reassess dosing. In the mean time her plans on taking ehr to the ER for acute management. She is instructed to continue on her BTP med of oxycodone 10 mg at 2 tabs Q 3 H prn RA pharmacy in willing to manage scripts on a weekly basis. Constipation-severe, narcotic induced. Reviewed senna 2 tabs BID-regular dosing and lactulose 15 mgTID prn and increase freq to 6 if needed. Goal BM minimum QOD. Cont stool softeners Anxiety- patient is overwhelmed with all this. suggest that she use her clonazepam 1/2 tab in am and continue 1 tab at HS. Home management-at this point is home bound and would be a good candidate for HH or hospice (still on chemo)-we will notify Reny RUSSELL. is realistic that she is terminal. We reviewed benefit of hospice if and when she choses to drop chemo. He is very soft spoken and gentle with her in the office. He offers to try above plan at home but she insists on ER and disposition from there. -DPOA/Advanced Directives/POLST-family has paperwork -Family/emotional support-fair amt of chaos around her as well as problem with substances with in family Past Medical History Significant PMH Noted: 1. Degenerative disk disease of the lumbar. 2. Multiple external otitis of the left ear. 3. History of anxiety and depression. 4. Hypertension. 5. Hyperlipidemia. 6. Osteoporosis. 7. Restless legs syndrome. 8. Metastatic colon CA 9. History of right breast cancer 1995 treated with breast conservation therapy, adjuvant chemotherapy and hormonal therapy 10. Cervical spondylolysis 11. Anemia 12. History of TIA 13. History of GERD and Sotelo's esophagus 14. History of C. difficile in the past Reports: GERD Port-A-Cath placement October 29, 2014 Status post laparoscopy followed by laparotomy, cholecystectomy, cholangiogram, and right hemicolectomy on 10/13/2014 Breast conservation surgery in 1995 for breast CA Cervical spine fusion in 2008 3 separate ear operations in the 1960s and 1980s Allergy Allergies Reviewed: Yes Medications Current Medications: Current Medications Fentanyl Citrate 25 mcg 25 mcg Q10MIN PRN IVPUSH Last administered on 16:00; Admin Dose 25 MCG; Start 01/19/17 at 14:20; Stop 01/19/17 at 16:52; Status DC Sodium Chloride 1,000 ml @ 50 mls/hr Q20H IV Last administered on 01/19/17 16: 42; Admin Dose 50 MLS/HR; Start 01/19/17 at 16:39 Al Hydrox/Mg Hydrox/Simethicone 30 ml Q6 PRN PO; Start 01/19/17 at 16:40; Stop 01/19/17 at 17:11; Status DC Ondansetron HCl Dose range: 4 mg to 8 mg Q4H PRN IVPUSH; Start 01/19/17 at 16: 40; Stop 01/19/17 at 17:11; Status DC Acetaminophen 975 mg Q6H PRN PO Last administered on 01/19/17 22:56; Admin Dose 975 MG; Start 01/19/17 at 16:40 Fentanyl 1 patch Q3D TOPICAL Last administered on 01/19/17 17:25; Admin Dose 1 PATCH; Start 01/19/17 at 16:40 Fentanyl 1 patch Q3D TOPICAL Last administered on 01/19/17 17:25; Admin Dose 1 PATCH; Start 01/19/17 at 16:40 Naloxone HCl 0.4 mg ONCE PRN IVPUSH; Start 01/19/17 at 16:40 Albuterol 2.5 mg QIDRT PRN NEB; Start 01/19/17 at 20:00 Amlodipine Besylate 5 mg DAILY PO Last administered on 01/20/17 09:00; Admin Dose 5 MG; Start 01/20/17 at 08:30 Citalopram Hydrobromide 20 mg DAILY PO Last administered on 01/20/17 08:59; Admin Dose 20 MG; Start 01/20/17 at 08:30 Clonazepam 0.5 mg QID PRN PO; Start 01/19/17 at 16:45 Oxycodone/ Acetaminophen 1 tab BID PRN PO Last administered on 01/20/17 06:19 ; Admin Dose 1 TAB; Start 01/19/17 at 16:45; Stop 01/20/17 at 09:30; Status DC Pantoprazole 40 mg 0630 PO Last administered on 01/20/17 06:23; Admin Dose 40 MG; Start 01/20/17 at 06:30 Venlafaxine HCl 75 mg TID PO Last administered on 01/20/17 09:30; Admin Dose 75 MG; Start 01/19/17 at 20:30 Pramipexole 0.25 mg HS PO Last administered on 01/19/17 20:14; Admin Dose 0.25 MG; Start 01/19/17 at 21:00 Al Hydrox/Mg Hydrox/Simethicone 30 ml Q6H PRN PO Last administered on 22:54; Admin Dose 30 ML; Start 01/19/17 at 16:45 Ondansetron HCl 4 to 8 mg Q4H PRN IVPUSH Last administered on 01/20/17 09:23; Admin Dose 4 MG; Start 01/19/17 at 16:45 Senna 17.2 mg BID PRN PO; Start 01/19/17 at 16:45; Stop 01/20/17 at 09:30; Status DC Polyethylene Glycol 17 gm DAILY PRN PO Last administered on 01/19/17 18:11; Admin Dose 17 GM; Start 01/19/17 at 16:45 Heparin Sodium (Porcine) 5,000 unit Q8 SUBQ Last administered on 01/20/17 09:00 ; Admin Dose 5,000 UNIT; Start 01/20/17 at 00:30 Oxycodone HCl 5 mg ONCE PRN PO Last administered on 01/20/17 00:36; Admin Dose 5 MG; Start 01/19/17 at 22:55; Stop 01/20/17 at 05:00; Status DC Nicotine 1 patch DAILY TOPICAL Last administered on 01/20/17 09:00; Admin Dose 1 PATCH; Start 01/19/17 at 22:55 Senna 17.2 mg BID PO Last administered on 01/20/17 12:07; Admin Dose 17.2 MG; Start 01/20/17 at 10:00 Lactulose 10 gm TID PO Last administered on 01/20/17 11:57; Admin Dose 10 GM; Start 01/20/17 at 09:35 Oxycodone HCl 20 mg Q3H PRN PO Last administered on 01/20/17 12:01; Admin Dose 20 MG; Start 01/20/17 at 09:25 Dexamethasone 4 mg DAILYWM PO Last administered on 01/20/17 11:57; Admin Dose 4 MG; Start 01/20/17 at 09:25 Scheduled Amlodipine (Amlodipine) 5 Mg Tablet 5 MG PO DAILY Citalopram (Citalopram) 20 Mg Tablet 20 MG PO DAILY Fentanyl 75 mcg/hr Patch (Fentanyl 75 mcg/hr Patch) 1 Each Patch.td72 1 PATCH TRANSDERM q 72 hours Gabapentin (Gabapentin) 100 Mg Capsule 100-200 MG PO HS Lisinopril (Lisinopril) 5 Mg Tablet 5 MG PO HS Omeprazole (Omeprazole) 40 Mg Capsule.dr 40 MG PO DAILY Pramipexole Dihydrochloride (Mirapex) 0.25 Mg Tablet 0.25-0.5 MG PO HS Tizanidine (Tizanidine) 2 Mg Capsule 2-4 MG PO HS Venlafaxine (Venlafaxine) 75 Mg Tablet 75 MG PO TID Scheduled PRN Acetaminophen/Diphenhydramine (Tylenol Pm Ex-Strength Caplet) 500 Mg-25 Mg Tablet 1 EACH PO HS PRN PRN For Sleep Albuterol HFA (Proair HFA) 8.5 Gm Hfa.aer.ad 2 PUFFS INHALATION QID PRN PRN For Congestion Clonazepam (Clonazepam) 0.5 Mg Tablet 0.5 MG PO QID PRN PRN For Anxiety Docusate Calcium (Stool Softener) 240 Mg Capsule 240 MG PO DAILY PRN PRN For Constipation Docusate Sodium/Benzocaine (Enemeez Plus Mini Enema) 5 Ml Enema 5 ML RC DIRECTED PRN PRN For Constipation Loperamide/Simethicone (Imodium Multi-Symptom Rel Cplt) 1 Each Tablet 1 EACH PO DAILY PRN PRN For Diarrhea or Loose Stool Ondansetron (Ondansetron) 8 Mg Tablet 8 MG PO BID PRN PRN For Nausea Phenylephrine/Dm/Acetaminop/GG (Mucinex Ydzp-Eca-Pxqwbgbxzu Lq) 177 Ml Liquid 177 ML PO DAILY PRN PRN cold Polyethylene Glycol 3350 (Miralax) 17 Gm Powd.pack 17 GM PO DIRECTED PRN PRN For Constipation oxyCODONE-Acetaminophen 10-325 mg (oxyCODONE-Acetaminophen 10-325 mg) 1 Each Tablet 1 TABLET PO q6 hours PRN PRN For Pain Objective Findings Exam Vital Sign - Last Date Time Temp Pulse Resp B/P Pulse Ox O2 Delivery O2 Flow Rate FiO2 01/20/17 10:18 36.8 96 18 166/89 95 Room Air Intake and Output 01/19/17 01/19/17 01/20/17 Cumulative From/Thru 15:00 23:00 07:00 01/19/17 13:50 - 01/20/17 05:39 Intake Total 500 ml 800 ml 1300 ml Output Total 150 ml 150 ml Balance 500 ml 650 ml 1150 ml Intake Oral 250 ml 250 ml IV Total 500 ml 550 ml 1050 ml Output Urine Total 150 ml 150 ml # Voids 2 2 Objective Frail/cachectic woman sitting at bedside. Vital signs noted. Oriented and appropriate. Head and neck exam without acute findings. Lungs with decreased breath sounds diffusely, no wheezes. Heart sounds regular with occasional ectopy. Abdomen scaphoid, soft, mildly tender in upper quadrants. Bowel sounds active. Extremities without pitting edema. Lab/Diagnostics Lab and Imaging results reviewed in detail in EMR. Time spent Total time 50 minutes; >50% face to face with patient , providing counselling regarding plans and recommendations, and in care coordination with her medical teams. Of the above total time,10 minutes counseling for advanced care planning with the patient, reviewing her wishes for advanced care copies to: Austin Lawton MD; Melanie Meredith MD, David F MD Jan 20, 2017 13:01
[2017-01-20] MEDS: 0.9% Sodium Chloride 1,000 ML IV SCH (15:21)
[2017-01-20 16:00] VITALS: BP 156/82; PULSE 86; RESP 19; O2SAT 97
[2017-01-20] MEDS ORDERED: HepLOK Flush 100 unit/mL 5 mL Inj IVFLUSH PRN (17:05)
[2017-01-20] MEDS: 0.9% Sodium Chloride 250 ML IV SCH (17:05)
[2017-01-20] MEDS ORDERED: Sodium Chloride LOK Flush 10 mL Syringe IVFLUSH PRN ×2 (17:05)
--- NOTE | 2017-01-20 18:44 | PROG NOTE ---
[address] [address] PROGRESS NOTE PATIENT: ABHIJEET KERN : 1940 MR#: [id number] ADMIT: 01/19/2017 JOB ID: [id number] DATE: 01/20/2017 INPATIENT MEDICAL ONCOLOGY PROGRESS REPORT: DIAGNOSIS: 1. Progressive metastatic colorectal adenocarcinoma. 2. Increasing cancer-related pain. HISTORY OF PRESENT ILLNESS: The patient is a 76-year-old woman with metastatic colorectal adenocarcinoma who has received multiple lines of therapy and was recently prescribed a new oral chemotherapy which she is not sure when or if she started it. She was supposed to start on Wednesday, January 11, and she would still be on it this week if she was following the prescribed regimen. She referred to the emergency department yesterday with increasing pain across lower back and now with radiation to the lower abdomen and pelvis bilaterally. Abdominal x-ray shows multiple air-fluid levels suggestive of partial obstruction. She reports intermittent diarrhea and constipation. She was severely constipated prior to admission but today she has had three loose stools. Her pain is still not well controlled. OBJECTIVE: She appears cachectic. Awake, alert, oriented x3. Blood pressure 156/82, heart rate 86, temperature afebrile. LABORATORY DATA: CBC unremarkable, other than mild anemia. Chemistry unremarkable, other than albumin 3.1 and alkaline phosphatase 400, which is chronically elevated. IMPRESSION AND PLAN: 1. Metastatic colorectal adenocarcinoma. She knows very well that her prognosis is very limited and she has utilized almost all available treatment options. She is not sure whether she has taken Lonsurf properly. This is an oral chemotherapy drugs for refractory metastatic colon cancer. 2. Worsening chronic pain. She is currently on fentanyl 125 mcg/hour patch and oxycodone 20 mg every 3 hours p.r.n. I do not think narcotics should be increased any further for her given the toxicity and lack of clear response from her when her narcotics are increased further. 3. I will discuss her case with Dr. Lazo and Dr. Pollock tomorrow and will return for followup.
[2017-01-20 22:21] VITALS: BP 145/79; PULSE 78; RESP 19; O2SAT 97
[2017-01-21] MEDS: Heparin 5,000 Unit/mL Inj SUBQ SCH ×4 (00:30→23:30)
[2017-01-21] MEDS: Ondansetron 2 mg/mL 2 mL Inj IVPUSH PRN ×2 (05:59→18:42)
[2017-01-21] MEDS: Pantoprazole 40 mg ER24 Tablet PO SCH (06:00)
[2017-01-21 06:01] VITALS: BP 145/90; PULSE 78; RESP 20; O2SAT 98
[2017-01-21] MEDS: Lactulose 20 Gm/30 mL 30 mL Syrup PO SCH ×3 (08:17→20:53)
[2017-01-21 10:00] VITALS: BP 140/80; PULSE 88; RESP 18; O2SAT 92
--- NOTE | 2017-01-21 11:45 | PCM.PALLBR ---
Palliative Care Recommendation Summary of palliative recommendations: 01/21/17-Pain- improved. Would greatly benefit from home health for bath aid and med management - Continue on fentanyl at 125 mcg Q3 days using oxycodone IR 10 mg 2 tabs Q 6 routinely and Q 3H PRN until pain well controlled with patch. Due to home situation- would ask that she be given meds at weekly or 2 week intervals until there is evidence of compliance and improved pain control. ie 3 patches of 100 and 25 mcg and oxycodone IR 10 mg #100. I will see her every 2 weeks and will cover her pain meds until this is stabilized. Constipation- doing well with senna 2 tabs daily and lactulose--probably dropped to bid. Reviewed goal of BM daily to minimum of QOD Chronic anxiety-OK to continue with clonazepam HS but also recommend 1/2 tab ( 0.25 mg) in AM Nausea and vomiting-continue on dexamethasone 4 mg daily for 1-2 weeks and then reassess. Colon [id number] wants to continue on her oral chemo. She is out of sync but thinks she has fair amt at home. Jesi states dosing-M-F and off and w/e but pt started it on a wed. Patients goal is to continue on oral therapy until there is evidence that it is no longer working and then she would be ready to engage hospice. Will address POLST before discharge. -Symptom management (Pain/other)- continue fentanyl patch 125 g. Oxycodone IR 20 mg PO every 3 hours as needed for breakthrough. For her chronic constipation, restart senna scheduled BID and lactulose 10 g/15 mL TID, with titration as needed Dexamethasone 4 mg QAM Clonazepam, citalopram and venlafaxine as before -DPOA/Advanced Directives/POLST- likely transition to hospice care in the near future. Patient awaiting further discussion with her oncologist before finalizing plans. Per conversations with Dr. Lazo on 01/19, CODE STATUS updated to DO NOT RESUSCITATE/DO NOT INTUBATE. She has not yet completed a POLST -Family/emotional support- palliative medicine will continue to follow and provide support. Good support from her , though family situation at home is otherwise complex. Again, see Dr. Lazo's note of 01/19 for details Additional Medical Diagnoses with primary management by Hospitalist team include : Pain secondary to metastatic cancer Constipation Dehydration Anxiety Hypertension Depression Problems: End of Life Preferences DO NOT RESUSCITATE/DO NOT INTUBATE Disposition Home hopefully with assist from HH Resuscitation Status Resuscitation Status: DNR/DNI:Do Not Resuscitate/Intubate POLST Updates/Changes Previous POLST?: No . Pain: Severe Symptom management: Nausea, Vomiting, Anxiety, Pain, Constipation Total time 40 min >50% face to face with patient and/or family, providing counselling regarding plans and recommendations, and in care coordination with his/her medical teams. including discussion with case managemnt, hospitalist team and detailed review of med issues with pt and with Jesi. I also spent an additional [ ] minutes counseling for advanced care planning with the patient/the patients family/the surrogate decision maker. copies to: Austin Lawton MD; Melanie Meredith MD Palliative Brief Note Date of Service Jan 21, 2017 . Patient seen in company of her friend Jesi and with Dr. Colt Martel resident on PC 76 yo pt seen 01/19 for pain management with intractable pain, constipation, N,V. Sent to ER due to uncontrolled sx and admitted for dx partial SBO. Fentanyl patch was at 75 mcg and increased to 125 mcg on adm with consistent dosing of oxycodone. She was put on bowel meds--senna and lactulose and has been having regular BM. Still nausea but taking in fluids and advancing diet. She still states pain is 7 out of 10 but now only in her back--not in lower abd/ pelvic area. Hemorrhoids are better. O: patient sitting up in bed, very talkative, speaks in full sentences without diff jovial very thin to cachectic mod kyphosis no edema abd xray-suggesting partial SBO labs wnl except mild anemia, elevated alk phos and albumin of 3.1 Keesha Lazo MD Jan 21, 2017 11:45
[2017-01-21] MEDS: 0.9% Sodium Chloride 1,000 ML IV SCH (12:59)
[2017-01-21] MEDS: Alum-Mag Hydrox-Simeth 30 mL Suspension PO PRN (14:47)
--- NOTE | 2017-01-21 14:53 | PCM.PNMED ---
Subjective Date of Service Jan 21, 2017 Subjective Patient is in a bed, complaining of abdominal pain, generalized pains and aches. States that it is getting better. Exam Vital Signs Vital Sign - Last Date Time Temp Pulse Resp B/P Pulse Ox O2 Delivery O2 Flow Rate FiO2 01/21/17 06:01 36.8 78 20 145/90 98 Room Air Intake and Output 01/20/17 01/20/17 01/21/17 Cumulative From/Thru 15:00 23:00 07:00 01/19/17 13:50 - 01/21/17 06:01 Intake Total 2327 ml 2100 ml 5727 ml Output Total 150 ml Balance 2327 ml 2100 ml 5577 ml Intake Oral 1810 ml 960 ml 3020 ml IV Total 517 ml 1140 ml 2707 ml Output Urine Total 150 ml # Voids 3 5 # Bowel Movements 1 1 Exam PHYSICAL EXAM: GENERAL: Alert, not in distress HEAD: atraumatic, normocephalic, no bruises. EYES: EOMI, anicteric, able to fully open and close eyelids SKIN: Skin color normal, turgor normal. No visible rashes or lesions. EAR, NOSE, MOUTH, THROAT: Lips, oral mucosa, tongue are moist, pink, no lesions.s. NECK: supple ROM normal. RESPIRATORY: Lungs clear to auscultation. Good diaphragmatic excursion CARDIAC: normal S1 and S2; no rubs, murmurs, or gallops; regular rhythm ABDOMEN: Abdomen soft, non-tender. BS normal. MUSCULOSKELETAL: ROM full, muscles are not tender EXTREMITIES: no pitting edema in LE, no new deformities or skin discoloration. NEURO: Alert, oriented X 3, Cranial nerves II-XII intact, Grossly normal motor function. PULSES: 2+ radial, 2+ carotid REVIEW OF SYSTEMS: GENERAL: no malaise, no fevers., SEE HPI HEENT: Negative for frequent or significant headaches All other reviewed and negative other than HPI. IVs and Medications Medications Reviewed: Medications were reviewed in detail Lab and Diagnostics Result Diagram: 01/20/1740 01/20/17 0640 X-Rays, CTs and MRIs Abd XR IMPRESSION: Prominent bowel loops with air-fluid levels most suggestive of partial obstruction. No significant stool is identified. Assessment & Plan 76 y/o female w/ a hx of metastatic colon CA on experimental therapy, prior R breast CA, DDD of lumbar spine, osteoporosis, HTN, HLD, being admitted for pain control. Pain secondary to metastatic cancer - improving -palliative medicine team on the case Plan - c/w pain meds as per pallmed Anemia of chronic disease - Stable Elevated Alk Ph - chronic - monitor Constipation - stable - c/w current meds Dehydration -likely secondary to Fleet enemas she did at home Anxiety - stable -clonazepam home dose Hypertension - c/w home meds Depression -c/w citalopram, venlafaxine DVD prophylaxis: heparin G.I. prophylaxis: pantoprazole, Zofran PRN DVT PROPHYLAXIS: * Disposition: discharge in 1-2 days after patient improves. Labs, radiology tests reviewed. Plan of care, medication side effects, home medication, diagnostic procedures and available alternatives were discussed and reviewed with patient. All questions answered. Patient verbalized understanding, approved and agreed to plan of care. VTE Prophylaxis: Sub-Q Heparin (Unfractionated) Resuscitation Status: DNR/DNI:Do Not Resuscitate/Intubate Smith Torres MD Jan 21, 2017 14:53
[2017-01-21 14:57] VITALS: BP 143/88; PULSE 91; RESP 20; O2SAT 92
[2017-01-21] MEDS: 0.9% Sodium Chloride 250 ML IV SCH (17:05)
[2017-01-21 20:24] VITALS: BP 132/76; PULSE 81; RESP 17; O2SAT 96
[2017-01-22 04:09] VITALS: BP 155/73; PULSE 93; RESP 17; O2SAT 96
[2017-01-22] MEDS: 0.9% Sodium Chloride 1,000 ML IV SCH (05:40)
[2017-01-22] MEDS: Pantoprazole 40 mg ER24 Tablet PO SCH (06:22)
[2017-01-22 08:30] VITALS: BP 148/76; PULSE 81; RESP 16; O2SAT 96
[2017-01-22] MEDS: Lactulose 20 Gm/30 mL 30 mL Syrup PO SCH ×3 (08:30→20:40)
[2017-01-22] MEDS: Heparin 5,000 Unit/mL Inj SUBQ SCH ×2 (10:04→17:16)
[2017-01-22 12:38] VITALS: BP 128/76; PULSE 78; RESP 16; O2SAT 95
--- NOTE | 2017-01-22 13:25 | PCM.PNMED ---
Subjective Date of Service Jan 22, 2017 Subjective Patient is in the back, complaining of abdominal pain, generalized pains and aches. Palliative care helping with pain management. Plan is to discharge the patient home tomorrow on oral pain medications, she will follow up with her oncologist and PCP and palliative care team. Exam Vital Signs Vital Sign - Last Date Time Temp Pulse Resp B/P Pulse Ox O2 Delivery O2 Flow Rate FiO2 01/22/17 12:38 36.6 78 16 128/76 95 Room Air Intake and Output 01/21/17 01/21/17 01/22/17 Cumulative From/Thru 15:00 23:00 07:00 01/19/17 13:50 - 01/22/17 05:54 Intake Total 2205 ml 2165 ml 97369 ml Output Total 150 ml Balance 2205 ml 2165 ml 9947 ml Intake Oral 1400 ml 1040 ml 5460 ml IV Total 805 ml 1125 ml 4637 ml Output Urine Total 150 ml # Voids 8 5 18 # Bowel Movements 6 3 10 Exam GENERAL: Alert, not in distress, emotional HEAD: atraumatic, normocephalic EYES: [place], EOMI, anicteric, able to fully open and close eyelids SKIN: Skin color normal, turgor normal. No visible rashes or lesions. EAR, NOSE, MOUTH, THROAT: Lips, oral mucosa, tongue are moist, pink, no lesions. NECK: no jugulovenous distention; supple ROM normal. ABDOMEN: Abdomen tender. MUSCULOSKELETAL: ROM full EXTREMITIES: no pitting edema in LE, no new deformities or skin discoloration. NEURO: Alert, oriented X3, Cranial nerves II-XII intact, Grossly normal motor function. REVIEW OF SYSTEMS: GENERAL: no malaise, no fevers., SEE HPI HEENT: Negative for frequent or significant headaches All other reviewed and negative other than HPI. Lab and Diagnostics Result Diagram: 01/20/17 0640 01/20/17 0640 X-Rays, CTs and MRIs Abd XR IMPRESSION: Prominent bowel loops with air-fluid levels most suggestive of partial obstruction. No significant stool is identified. Assessment & Plan 76 y/o female w/ a hx of metastatic colon CA on experimental therapy, prior R breast CA, DDD of lumbar spine, osteoporosis, HTN, HLD, being admitted for pain control. Pain secondary to metastatic cancer - improving -palliative medicine team on the case Plan - c/w pain meds as per pallmed Anemia of chronic disease - Stable Elevated Alk Ph - chronic Constipation - stable - c/w current meds Dehydration - Improved -likely secondary to Fleet enemas she did at home Anxiety - stable - Continue with current medications Hypertension - c/w home meds Depression -c/w citalopram, venlafaxine DVD prophylaxis: heparin G.I. prophylaxis: pantoprazole, Zofran PRN DVT PROPHYLAXIS: * Disposition: discharge in 1-2 days after patient improves. Labs, radiology tests reviewed. Plan of care, available alternatives were discussed and reviewed with patient. All questions answered. Patient verbalized understanding, approved and agreed to plan of care. VTE Prophylaxis: Sub-Q Heparin (Unfractionated) Resuscitation Status: DNR/DNI:Do Not Resuscitate/Intubate Smith Torres MD Jan 22, 2017 13:25
--- NOTE | 2017-01-22 15:15 | PCM.PNPALL ---
Date of Service Jan 22, 2017 Date of Hospital Admission: Jan 19, 2017 at 17:06 Date of Palliative Consult: Jan 20, 2017 Palliative Care Recommendation Summary of palliative recommendations: --Pain-- back on fentanyl 125 mcg but needs to be monitored overnight to make sure she tolerates this dose. Hopefully will allow her to decrease the oxycodone use Still on dexamethasone--will continue this week then try and d/c Request that pt only receive 1 week of her meds on discharge. will reassess at next follow up 01/28/17 Constipation- should be controllable with regular dosing of senna and lactulose - bid Anorexia, weight loss-seemingly improved. Possibly due to management of constipation, anxiety and pain POLST reviewed with Dr. Martel-she requests FULL CODE. Will review again when seen outpatient. for now will change code status. 01/21/17-Pain- improved. Would greatly benefit from home health for bath aid and med management - Continue on fentanyl at 125 mcg Q3 days using oxycodone IR 10 mg 2 tabs Q 6 routinely and Q 3H PRN until pain well controlled with patch. Due to home situation- would ask that she be given meds at weekly or 2 week intervals until there is evidence of compliance and improved pain control. ie 3 patches of 100 and 25 mcg and oxycodone IR 10 mg #100. I will see her every 2 weeks and will cover her pain meds until this is stabilized. Constipation- doing well with senna 2 tabs daily and lactulose--probably dropped to bid. Reviewed goal of BM daily to minimum of QOD Chronic anxiety-OK to continue with clonazepam HS but also recommend 1/2 tab ( 0.25 mg) in AM Nausea and vomiting-continue on dexamethasone 4 mg daily for 1-2 weeks and then reassess. Colon [id number] wants to continue on her oral chemo. She is out of sync but thinks she has fair amt at home. Jesi states dosing-M-F and off and w/e but pt started it on a wed. Patients goal is to continue on oral therapy until there is evidence that it is no longer working and then she would be ready to engage hospice. Will address POLST before discharge. -Symptom management (Pain/other)- continue fentanyl patch 125 g. Oxycodone IR 20 mg PO every 3 hours as needed for breakthrough. For her chronic constipation, restart senna scheduled BID and lactulose 10 g/15 mL TID, with titration as needed Dexamethasone 4 mg QAM Clonazepam, citalopram and venlafaxine as before -DPOA/Advanced Directives/POLST- likely transition to hospice care in the near future. Patient awaiting further discussion with her oncologist before finalizing plans. Per conversations with Dr. Lazo on 01/19, CODE STATUS updated to DO NOT RESUSCITATE/DO NOT INTUBATE. She has not yet completed a POLST -Family/emotional support- palliative medicine will continue to follow and provide support. Good support from her , though family situation at home is otherwise complex. Again, see Dr. Lazo's note of 01/19 for details Additional Medical Diagnoses with primary management by Hospitalist team include : Pain secondary to metastatic cancer Constipation Dehydration Anxiety Hypertension Depression Problems: End of Life Preferences DO NOT RESUSCITATE/DO NOT INTUBATE Disposition Home hopefully with assist from HH Resuscitation Status Resuscitation Status: CPR: Attempt Resuscitation POLST Updates/Changes Previous POLST?: No . Symptom management: Anxiety, Pain, Constipation Palliative Subjective Palliative Care Daily Responde: Patient, Team, Nurse Brief History 76 yo with hx of chronic back pain but also metastatic colon CA just 2 weeks in to palliative chemo having failed previous treatments. She has sx of increasing pain, nausea and vomiting, weight loss and constipation chronic but worse with her narcotics. She has chronic anxiety and continues to smoke. She has a complex home life with her son recently moving in with a known active problem with SUDS. She acknowledges not following directions on her meds and unable to frankly define how she takes them. Her pain has not been adequately treated because of this. She trusts her and friend Jesi to manage her meds if need be. Patient/Family Concerns see above Subjective She identifies her pain has not been well controlled since hospitalization. Her constipation has been to the point of diarrhea. She had been on fentanyl 75 mcg outpatient and on admit was started on 125 mcg with documented placed in the ER (100 mcg and 25 mcg patches) This AM only a 25 mcg patch was found on her when time to replace patches. It is unknown how long this had been. She had stated earlier that the oxycodone at 20 mg works but doesn't last and her pain builds up. She has been tolerating fluids, ensure and some food without nausea or vomiting. She has not been taking her chemo-"this is the week off" O: able to get out of bed without assist. moving more fluidly than when seen as OP, weak and can only stand 1-2 min. cachectic kyphotic lungs clear COR- RR skin inspected with residual adhesive L and R lower back/iliac crest area. New patches placed and dated on upper back placed approx 2-3 hours before our visit. pt feels "they are working" Palliative Performance Scale PPS Patient Status: Current PPS Ambulation: Mainly Sit/Lie PPS Activity: Unable to do most activity PPS Self-Care: Occasional assistance necessary (bathing) PPS Intake: Normal or reduced PPS Conscious Level: Full or confusion Performace Scale: 50% Responsive Patient Symptoms Pain (current): Mild Pain (maximium): Severe *Requires 72 Hour Followup Nausea: Mild Depression: Moderate Anxiety: Moderate Drowsiness/Sleepiness: None Anorexia: Moderate Shortness of Breath: Mild Constipation see HPI Objective Findings Exam Vital Sign - Last Date Time Temp Pulse Resp B/P Pulse Ox O2 Delivery O2 Flow Rate FiO2 01/22/17 12:38 36.6 78 16 128/76 95 Room Air Intake and Output 01/21/17 01/21/17 01/22/17 Cumulative From/Thru 15:00 23:00 07:00 01/19/17 13:50 - 01/22/17 05:54 Intake Total 2205 ml 2165 ml 57391 ml Output Total 150 ml Balance 2205 ml 2165 ml 9947 ml Intake Oral 1400 ml 1040 ml 5460 ml IV Total 805 ml 1125 ml 4637 ml Output Urine Total 150 ml # Voids 8 5 18 # Bowel Movements 6 3 10 General: Alert/Oriented x3 HEENT: PERRLA, EOMI, Scleral Anicteric, Mucous Membr Moist/[place] Heart: Regular Rate/Rhythm Lungs: Normal Air Movement, Diminished Abdomen: Bowel Tones x4 Neuro: Cranial Nerve 3-12 Intact, Other (appropriate, calm, able to have detailed discussion re meds, home etc) Extremities: No Edema Lab/Diagnostics Lab and Imaging results reviewed in detail in EMR. Patient/Family Conference Members Present Family Members Present patient, TC to Medical Team Members Present? [facility], Dr. Colt Martel Resident on PC, Vj RN Discussion/Goals of Care Discussion: Pt recognizes severity of disease but not clear as to cause of pain-claims both usual pain but also states she thinks it is due to malignancy. Wants to stay on her chemo and is not ready to concede that she has a terminal disease. Wants pain control. Less bothered by anxiety and weight loss. Does not have insight into challenges of meds-chemo, narcotics Reviewed with her -Curtis. He is willing to deal with her meds and obtain a lock box. Reviewed putting out 1 day of meds and monitoring use. Time spent Total time 65 minutes; >50% face to face with patient and/or family, providing counselling regarding plans and recommendations, and in care coordination with his/her medical teams. Care coordination and med management is paramount in this visit time I also spent an additional [ ] minutes counseling for advanced care planning with the patient/the patients family/the surrogate decision maker. copies to: Melanie Meredith MD, Keesha Almeida MD Jan 22, 2017 15:15
[2017-01-22 16:30] VITALS: BP 120/70; PULSE 76; RESP 20; O2SAT 95
[2017-01-22] MEDS: 0.9% Sodium Chloride 250 ML IV SCH (17:17)
--- NOTE | 2017-01-22 18:19 | PROG NOTE ---
[address] [address] PROGRESS NOTE PATIENT: ABHIJEET KERN : 1940 MR#: [id number] ADMIT: 01/19/2017 JOB ID: [id number] DATE: 01/22/2017 DIAGNOSES: 1. Current admission for increasing cancer-related pain, now improved. 2. Metastatic colorectal adenocarcinoma. SUBJECTIVE: Today her pain is better. She still has diarrhea. She has low appetite but ate half of her meals. She is able to stand up and walk but feels weak. OBJECTIVE: Resting in bed very comfortably and in good spirits. Blood pressure 120/70, heart rate 76, temperature 36.9, O2 saturation 95% on room air. LABORATORY DATA: Labs from January 20: CBC and chemistry profile were overall unremarkable except mild hypoalbuminemia and mild anemia. Alkaline phosphatase 400, which is chronically elevated. IMPRESSION AND PLAN: 1. Her pain regimen has been adjusted and she feels more comfortable. She will followup with Dr. Lazo as outpatient with regards to pain management and other palliative care needs. She is on fentanyl 125 mcg/hour patch and oxycodone p.r.n. 2. Metastatic colorectal adenocarcinoma. She would like to continue treatment. She took her first cycle of Lonsurf interruptedly. I have instructed her to not start until we have a followup appointment and start a new cycle. I will schedule a followup visit for this patient either next week or the following. I highly appreciate Dr. Lazo's assistance.
[2017-01-22 22:00] VITALS: BP 118/67; PULSE 78; RESP 17; O2SAT 98
[2017-01-23] MEDS: Heparin 5,000 Unit/mL Inj SUBQ SCH ×2 (00:11→10:22)
[2017-01-23] MEDS: 0.9% Sodium Chloride 1,000 ML IV SCH (00:13)
[2017-01-23 02:31] VITALS: BP 126/74; PULSE 72; RESP 17; O2SAT 98
[2017-01-23 06:22] VITALS: BP 126/69; PULSE 82; RESP 17; O2SAT 96
[2017-01-23] MEDS: Pantoprazole 40 mg ER24 Tablet PO SCH (06:26)
[2017-01-23] MEDS ORDERED: OXYC5TAB72 PO (08:34)
[2017-01-23] MEDS ORDERED: DXM4T PO (08:34)
[2017-01-23] MEDS ORDERED: Fentanyl TOPICAL (08:34)
[2017-01-23 10:10] VITALS: BP 137/74; PULSE 76; RESP 16; O2SAT 93
[2017-01-23] MEDS: Lactulose 20 Gm/30 mL 30 mL Syrup PO SCH ×2 (10:22→14:26)
[2017-01-23] MEDS: Alum-Mag Hydrox-Simeth 30 mL Suspension PO PRN ×2 (10:22→14:26)
[2017-01-23] MEDS: Polyethylene Glycol (PEG) 17 Gm Powder PO PRN (10:23)
--- NOTE | 2017-01-23 10:48 | PCM.DC.MED ---
Discharge Summary Date of Service Jan 23, 2017 Dates of Hospitalization Date of Hospital Admission Jan 19, 2017 at 17:06 Date of Discharge: Jan 23, 2017 Providers: Admitting Physician: Rudolph Michael MD Primary Care Physician: Austin Lawton MD Attending Physician: Smith Torres MD Diagnosis at Time of Discharge Diagnosis at Time of Discharge Pain secondary to metastatic cancer Anemia of chronic disease Constipation Anxiety Hypertension Depression Consultations Oncology, Palliative medicine Procedures XRay, CTs & MRIs Abd XR IMPRESSION: Prominent bowel loops with air-fluid levels most suggestive of partial obstruction. No significant stool is identified. Hospital Course 76 y/o female w/ a hx of metastatic colon CA on experimental therapy, prior R breast CA, DDD of lumbar spine, osteoporosis, HTN, HLD, presented to the ED c/ o lower abdominal pain with radiation to the back, constipation. The patient has been seeing palliative care physician Dr. Lazo regarding her colon cancer- related abdominal and back pain and is being treated with Fentanyl patches and Oxycodone PRN. While in the hospital palliative medicine team and Oncology were consulted and helped with management of patient's pain. Fentanyl patch was increased to 125 mcg, Oxycodone to 20 mg q3h. Patient was also treated with IVF and Lactulose. Palliatib=ve medicine will see the patient in outpatient settings in several days after discharge. Patient will need [facility] nurse to check on her 2 times a week. After patient improved she was discharged home. SHe will follow up with her oncologist, palliative medicine team , PCP for further management of her medical problems. Patient and family were in agreement with discharge plan. I discussed with the patient possible side effects of opioids , she was aware of it Patient Condition @ Discharge: good Discharge Disposition: home Discharge Activity: resume regular activity Discharge Diet: regular diet, heart healthy, low fat, low salt, high fiber Information Provided to Patient: information about discharge medications Discharge Medications: I discussed with patient medication dosage, usage, goals of therapy, side effects, alternatives. During discharge patient was allert, oriented, able to make own informed decisions. We discussed possible severe side effects, adverse reactions, benefits, risks, alternatives of current and newly prescribed medications and diagnostic procedures. Patient verbalized understanding and agreed to current plan of care and discharge. TIME SPENT IN DISCHARGE ACTIVITY: Face to face activity greater then 30 minutes spent in discharge activity. 1. Discussed with patient re: discharge plan of care/treatment, and follow up care/services. 2. Patient agreed with discharge plan and further plan of care, all questions were answered/addressed, no further questions at the time of discharge. Exam Vital Signs (Last) Date Time Temp Pulse Resp B/P Pulse Ox O2 Delivery O2 Flow Rate FiO2 01/23/17 10:10 36.8 76 16 137/74 93 Room Air Test 01/19/17 15:25 01/20/17 06:40 Hold [place] Top Tube Received (Received) White Blood Count 8.4th/mm3 (3.8-10.1) Red Blood Count 3.55mil/mm3 (3.90-5.20) Hemoglobin 10.6g/dL (12.0-15.6) Hematocrit 33.6% (35.0-46.0) Mean Corpuscular Volume 94.6fL (81-100) Mean Corpuscular Hemoglobin 29.9pg (27.0-35.0) Mean Corpuscular Hemoglobin Concent 31.5% (32.0-37.0) Red Cell Distribution Width 14.9% (12.3-15.4) Platelet Count 320bil/L (150-400) Neutrophils (%) (Auto) 73.4% (40-74) Lymphocytes (%) (Auto) 19.1% (14-46) Monocytes (%) (Auto) 5.5% (4-12) Eosinophils (%) (Auto) 1.1% (0-5) Basophils (%) (Auto) 0.4% (0-3) Sodium Level 141mEq/L (134-144) Potassium Level 4.2mEq/L (3.5-5.2) Chloride Level 102mEq/L (97-108) Carbon Dioxide Level 25mmol/L (18-29) Blood Urea Nitrogen 18mg/dL (8-27) Creatinine 0.68mg/dL (0.57-1.00) Estimat Glomerular Filtration Rate 121mL/min (>59) Glucose Level 105mg/dL (60-99) Calcium Level 8.5mg/dL (8.5-10.1) Total Bilirubin 0.2mg/dL (0.0-1.2) Aspartate Amino Transf (AST/SGOT) 19U/L (0-50) Alanine Aminotransferase (ALT/SGPT) 8U/L (0-32) Alkaline Phosphatase 400U/L (25-165) Total Protein 5.7g/dL (6.4-8.4) Albumin 3.1g/dL (3.4-5.0) Discharge Medications Discharge Medications ([Fentanyl]) 1 PATCH PATCH 1 PATCH TOPICAL Q3D Prescribed by: NORBERTO JONES MD ([Fentanyl]) 1 PATCH PATCH 1 PATCH TOPICAL Q3D Prescribed by: NORBERTO JONES MD Amlodipine (Amlodipine) 5 Mg Tablet 5 MG PO DAILY (Reported) Citalopram (Citalopram) 20 Mg Tablet 20 MG PO DAILY (Reported) Dexamethasone (Dexamethasone) 4 Mg Tablet 4 MG PO DAILYWM Prescribed by: NORBERTO JONES MD Gabapentin (Gabapentin) 100 Mg Capsule 100-200 MG PO HS (Reported) Lisinopril (Lisinopril) 5 Mg Tablet 5 MG PO HS (Reported) Omeprazole (Omeprazole) 40 Mg Capsule.dr 40 MG PO DAILY (Reported) Pramipexole Dihydrochloride (Mirapex) 0.25 Mg Tablet 0.25-0.5 MG PO HS (Reported ) Tizanidine (Tizanidine) 2 Mg Capsule 2-4 MG PO HS (Reported) Venlafaxine (Venlafaxine) 75 Mg Tablet 75 MG PO TID (Reported) As needed Albuterol HFA (Proair HFA) 8.5 Gm Hfa.aer.ad 2 PUFFS INHALATION QID PRN PRN For Congestion (Reported) Clonazepam (Clonazepam) 0.5 Mg Tablet 0.5 MG PO QID PRN PRN For Anxiety ( Reported) Docusate Calcium (Stool Softener) 240 Mg Capsule 240 MG PO DAILY PRN PRN For Constipation (Reported) Docusate Sodium/Benzocaine (Enemeez Plus Mini Enema) 5 Ml Enema 5 ML RC DIRECTED PRN PRN For Constipation (Reported) Loperamide/Simethicone (Imodium Multi-Symptom Rel Cplt) 1 Each Tablet 1 EACH PO DAILY PRN PRN For Diarrhea or Loose Stool (Reported) Ondansetron (Ondansetron) 8 Mg Tablet 8 MG PO BID PRN PRN For Nausea (Reported) Polyethylene Glycol 3350 (Miralax) 17 Gm Powd.pack 17 GM PO DIRECTED PRN PRN For Constipation (Reported) oxyCODONE (oxyCODONE) 5 Mg Tablet 20 MG PO Q3H PRN PRN For Pain Prescribed by: NORBERTO JONES MD Followup Plan Discharge Diet: Heart Healthy Follow-up with PCP in: 1 week Time spent 35 min Smith Torres MD Jan 23, 2017 10:47
== END 2017-01-23 16:50 | disposition home or self-care (01) ==
LOC: SED 13:18 → MOC 17:06
PROVIDERS: ADMIT Internal Medicine; ATTEND Internal Medicine
DX: R10.9 Unspecified abdominal pain (principal); C18.9 Malignant neoplasm of colon, unspecified; D63.8 Anemia in other chronic diseases classified elsewhere; K59.00 Constipation, unspecified; E86.0 Dehydration; M51.36 Other intervertebral disc degeneration, lumbar region; M81.8 Other osteoporosis without current pathological fracture; I10 Essential (primary) hypertension; E78.5 Hyperlipidemia, unspecified; F41.9 Anxiety disorder, unspecified; F17.210 Nicotine dependence, cigarettes, uncomplicated; Z85.3 Personal history of malignant neoplasm of breast; Z79.899 Other long term (current) drug therapy

== ENCOUNTER 2017-02-10 15:54 | Inpatient (IN) | payer MEDICARE ==
[~2017-02-10] VITALS: Ht 152.4 cm; Wt 41.0 kg
[~2017-02-10 15:54] MED LIST changes: +DXM4T PO; -FENT1PAT9 TRANSDERM; +Fentanyl TOPICAL; +GABA-500 PO; -IBUP400T22 PO; +LISI-571 PO; -OMEP40CA3 PO; +OMEP40CA36 PO; -ONDA-53 PO; +ONDA-54 PO; -OXYC-466 PO; +OXYC-530 PO; -PHEN177L2 PO; -PROP10TA8 PO; -[UNRECOGNIZED DRUG - REMARK] PO
[2017-02-10] MEDS ORDERED: Haloperidol 5 mg/mL Inj IVPUSH PRN ×2 (16:10→23:15)
[2017-02-10] MEDS ORDERED: Artificial Tears 15 mL Ophthalmic Solution AFFECT_EYE PRN (16:10)
[2017-02-10] MEDS ORDERED: Morphine 100 mg/100 mL NS 100 MG in IV Premix 1 EACH IV SCH (16:10)
[2017-02-10] MEDS ORDERED: Ondansetron 2 mg/mL 2 mL Inj IVPUSH PRN ×3 (16:10→23:15)
--- NOTE | 2017-02-10 16:24 | PCM.HPMED ---
Subjective Date of Service Feb 10, 2017 Primary Provider: Admitting Physician: Rudolph Michael MD Primary Care Physician: Austin Lawton MD Attending Physician: Rudolph Michael MD History of Present Illness: From ER, palliative care notes, and chart: 76 y/o female w/ a hx of metastatic colon CA (advanced) on experimental therapy , prior R breast CA, DDD of lumbar spine, osteoporosis, HTN, HLD,being admitted directly from palliative care (Dr. Lazo's office) for comfort care.The patient has deteriorated over time. Right now in pain, and is being admitted for comfort care and transition to hospice. Review of Systems: Could not be obtained. Patient not oriented. Allergies Coded Allergies: Sulfa (Sulfonamide Antibiotics) (Verified Allergy, Unknown, 01/19/17) nalbuphine (Verified Adverse Reaction, Intermediate, Hallucinations, ) PMH 1. Degenerative disk disease of the lumbar. 2. Multiple external otitis of the left ear. 3. History of anxiety and depression. 4. Hypertension. 5. Hyperlipidemia. 6. Osteoporosis. 7. Restless legs syndrome. 8. Metastatic colon CA 9. History of right breast cancer 1995 treated with breast conservation therapy, adjuvant chemotherapy and hormonal therapy 10. Cervical spondylolysis 11. Anemia 12. History of TIA 13. History of GERD and Sotelo's esophagus 14. History of C. difficile in the past Surgical History Port-A-Cath placement October 29, 2014 Status post laparoscopy followed by laparotomy, cholecystectomy, cholangiogram, and right hemicolectomy on 10/13/2014 Breast conservation surgery in 1995 for breast CA Cervical spine fusion in 2008 3 separate ear operations in the and Social History Hx Alcohol Use: No ("I used to") Hx Substance Use: No Hx Tobacco Use: Yes Smoking Status: Former Smoker Exam Exam Head / Eyes: Atraumatic, Normocephali ENT: Mucous membranes moist, Conjunctiva normal Neck: Supple, Full range of motion Extremities: Vascular intact, Neuro intact, No swelling Skin: Warm, Dry, No cyanosis Neurologic: Alert , oriented X 1 Psychiatric: Mood/affect normal, Behavior normal, Normal thought content General/Constitutional: Cachectic, in acute distress due to Distress / Hydration: Positive: Distress moderate Appearance / Presentation: Positive: Cachectic, Frail, In pain, Uncomfortable, Underweight Respiratory / Chest: Breath sounds NL, Breath sounds = bilat, No respiratory distress, No rales, No rhonchi, No wheezing Cardiovascular: Heart rate NL, Regular rhythm, Heart sounds NL, No murmurs Abdomen: Soft, No guarding, No rebound, No distention. BS+ Assessment & Plan 76 y/o female w/ a hx of metastatic colon CA (advanced) on experimental therapy , prior R breast CA, DDD of lumbar spine, osteoporosis, HTN, HLD,being admitted directly from palliative care (Dr. Lazo's office) for comfort care. > End of life care - Metastatic lung cancer - patient was transferred from Dr. Lazo's office for comfort care - Dr. Lazo following the patient, comfort care at this point - transition to hospice Disposition: Inpatient admission due to complexity of the pathology. Resuscitation Status: DNR/DNI:Do Not Resuscitate/Intubate Time spent 35 mins Rudolph Michael MD Feb 10, 2017 16:11
[2017-02-10] MEDS ORDERED: 0.9% Sodium Chloride 250 ML ONE (16:32)
--- NOTE | 2017-02-10 16:34 | PCM.CONPAL ---
Date of Service Feb 10, 2017 Date of Hospital Admission: Feb 10, 2017 at 16:03 Date of Palliative Consult: Feb 10, 2017 Requesting Provider: Melanie Meredith MD Reason Palliative Care Consult: Pain, Hospice Referral & Discussion Hospital Unit @time of consult: Orthopedic/Surgical Care Palliative Care Recommendation Summary of palliative recommendations: -Symptom management (Pain/other) Goals of care reviewed and at this point self evident with continued deterioration despite ongoing trial of tx. Pt and family agree to comfort care and goal for hospice if appropriate. Hospice notified and tentative open date is Wednesday SOB/cough-ddx tumor, pneumonia, COPD or all of these- comfort in txmt Pain-has been controlled on her methadone but barely - still requiring oxycodone 20 mg approx Q 4. Will switch to comfort meds IV. This can be switched to methadone at higher dose if she is able to d/c Starting EOL med orders- MS infusion at 1 mg/hour with titration as needed, haloperidol for agitation and hallucinations and continue her benzo with addnal PRN -DPOA/Advanced Directives/POLST--If able to d/c will need new POLST for DNR-- comfort Problems: End of Life Preferences DNR and now comfort care. Goals of Care Hospitalization with IV meds for sx control and hospice consultation. If able then home with hospice but she may well in the hospital Resuscitation Status Resuscitation Status: DNR/DNI:Do Not Resuscitate/Intubate POLST Updates/Changes Previous POLST?: Yes Artificially Admin Nutrition: No Artifical Nutrition by Tube POLST Discussed with: Patient, Health Care Agent (DPOAHC), Spouse/Other . Advanced Care Planning Address: Comfort care Pain: Moderate Symptom management: Nausea, Anxiety, Drowsiness/sleepiness, Agitation, Dyspnea , Pain, Delirium Pt History History of Present Illness Patient originally seen in Oncology but then direct admit due to profound weakness, SOB, delirium and pain management. Called to see patient by Dr. Meredith due to above issues. does not feel capable of managing at home. 76 yo patient with known metastatic colon CA and progressive weight loss, anorexia, weakness and now with cough and SOB. Pain is now in fair management with start of methadone at 10 mg TID along with oxycodone 2 mg every 3-4 hours. Starting yesterday she has had hallucinations and some agitation. She has been refusing her meds but her has been able to keep up on her methadone and clonazepam. She is able to sit in a chair for a very short period of time due to weakness. She has been having BM but stopped her senna the past 1-2 days. She has been on an experimental medication which has postponed her ability to be on hospice but has had progression of her ds despite this. Her original dx was mid 2014 with hemicolectomy and ongoing chemotx which failed with progressive ds. 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 Past Medical History Significant PMH Noted: Past Medical History 1. Degenerative disk disease of the lumbar. 2. Multiple external otitis of the left ear. 3. History of anxiety and depression. 4. Hypertension. 5. Hyperlipidemia. 6. Osteoporosis. 7. Restless legs syndrome. 8. Metastatic colon CA 9. History of right breast cancer 1995 treated with breast conservation therapy, adjuvant chemotherapy and hormonal therapy 10. Cervical spondylolysis 11. Anemia 12. History of TIA 13. History of GERD and Sotelo's esophagus 14. History of C. 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 Family Members Issues: lives with her who is her caregiver Social Support: and friend Jesi, some support from her children but issue of WILVER and discord Responsive Patient Symptoms Pain (maximium): Moderate Tiredness/Fatigue: Moderate Nausea: Moderate Anxiety: Moderate Drowsiness/Sleepiness: Moderate Anorexia: Moderate Shortness of Breath: Severe *Requires 72 Hour Followup Delirium hallucinations past 24 hour Palliative Performance Scale PPS Ambulation: Totally Bed PPS Activity: Unable to do most activity PPS Self-Care: 1 person assist PPS Intake: Minimal to sips PPS Conscious Level: Full or confusion Performance Scale: 30% ADLs ADL Patient Status: Current ADL Ambulation: Mainly Bed ADL Dressing: Considerable assistance required ADL Feeding: Considerable assistance required ADL Hygene/bathing: Considerable assistance required ADL Transfers: Considerable assistance required POLST at Time of Admission Previous POLST?: Yes Cardiopulmonary Resuscitation: DNR: Do Not Attempt Resuscitation Allergy Allergies Reviewed: Yes Medications Current Medications: Current Medications Ondansetron HCl 4 to 8 mg Q4H PRN IVPUSH; Start 02/10/17 at 16:15 Scheduled ([Fentanyl]) 1 PATCH PATCH 1 PATCH TOPICAL Q3D ([Fentanyl]) 1 PATCH PATCH 1 PATCH TOPICAL Q3D Amlodipine (Amlodipine) 5 Mg Tablet 5 MG PO DAILY Citalopram (Citalopram) 20 Mg Tablet 20 MG PO DAILY Dexamethasone (Dexamethasone) 4 Mg Tablet 4 MG PO DAILYWM Gabapentin (Gabapentin) 100 Mg Capsule 100-200 MG PO HS Lisinopril (Lisinopril) 5 Mg Tablet 5 MG PO HS Omeprazole (Omeprazole) 40 Mg Capsule.dr 40 MG PO DAILY Pramipexole Dihydrochloride (Mirapex) 0.25 Mg Tablet 0.25-0.5 MG PO HS Tizanidine (Tizanidine) 2 Mg Capsule 2-4 MG PO HS Venlafaxine (Venlafaxine) 75 Mg Tablet 75 MG PO TID Scheduled PRN Albuterol HFA (Proair HFA) 8.5 Gm Hfa.aer.ad 2 PUFFS INHALATION QID PRN PRN For Congestion Clonazepam (Clonazepam) 0.5 Mg Tablet 0.5 MG PO QID PRN PRN For Anxiety Docusate Calcium (Stool Softener) 240 Mg Capsule 240 MG PO DAILY PRN PRN For Constipation Docusate Sodium/Benzocaine (Enemeez Plus Mini Enema) 5 Ml Enema 5 ML RC DIRECTED PRN PRN For Constipation Loperamide/Simethicone (Imodium Multi-Symptom Rel Cplt) 1 Each Tablet 1 EACH PO DAILY PRN PRN For Diarrhea or Loose Stool Ondansetron (Ondansetron) 8 Mg Tablet 8 MG PO BID PRN PRN For Nausea Polyethylene Glycol 3350 (Miralax) 17 Gm Powd.pack 17 GM PO DIRECTED PRN PRN For Constipation oxyCODONE (oxyCODONE) 5 Mg Tablet 20 MG PO Q3H PRN PRN For Pain Other medications fentanyl has been stopped and methadone 10 mg TID replaced it Objective Findings Exam Objective frail, cachectic, SOB, moist cough, barely able to stay in sitting position in office, slightly restless General: Alert, Oriented, Person, Place, Situation, Moderate distress HEENT: PERRLA, EOMI, Scleral Anicteric, Mucous Membranes Dry Heart: Tachycardia Lungs: Rhonchorus Neuro: Cranial Nerve 3-12 Intact Extremities: No Edema Lab/Diagnostics Lab and Imaging results reviewed in detail in EMR. Increased alk phos and LDH, Na 132 Patient/Family Conference Members Present Family Members Present patient and her and his son Medical Team Members Present? Drew [facility] Case reviewed with Dr. Meredith and Riley MCCLELLAND oncology Discussion/Goals of Care Discussion FAMILY UNDERSTANDING OF DISEASE: does not feel he can take care of her at home without support. He recognizes end of life DISEASE PROGRESSION/EVIDENCE OF DECLINE: SYMPTOM BURDEN: GOALS: Sx management. Time spent Total time 60 minutes; >50% face to face with patient and/or family, providing counselling regarding plans and recommendations, and in care coordination with his/her medical teams. Majority of which is coordination of care with discussion with Dr. Meredith, hospice, hospitalist and care team along with med management for comfort care I also spent an additional [ ] minutes counseling for advanced care planning with the patient/the patients family/the surrogate decision maker. copies to: Melanie Meredith MD, Deborah A MD Feb 10, 2017 16:34 Time spent Total time 60 minutes; >50% face to face with patient and/or family, providing counselling regarding plans and recommendations, and in care coordination with his/her medical teams. Majority of which is coordination of care with discussion with Dr. Meredith, hospice, hospitalist and care team along with med management for comfort care I also spent an additional [ ] minutes counseling for advanced care planning with the patient/the patients family/the surrogate decision maker. copies to: Melanie Meredith MD, Deborah A MD Feb 10, 2017 16:34
[2017-02-10] MEDS: Glycopyrrolate 0.2 MG/ML 1mL Inj IVPUSH PRN ×2 (19:02→23:54)
--- NOTE | 2017-02-10 20:19 | NUR ---
Admitted for comfort care measures only @ 1600 Pt comes from clinic office in uncontrolled pain. Pt admitted for Comfort care measures only until hospice can open on Wednesday. Upper right port accessed. Frail pt able to stand with 1 assist to bed from . [facility] but able to answer questions appropriately. Mostly A&OX4 but confused at times. Some anxiety noted and pain 8/10. Morphine drip started at 1mg/hr. After many breakthrough doses of morphine pt has now been per protocol turned up to 4mg/hr of morphine drip. Advised oncoming nurse that pt may need some Ativan at this point. At home pt diet soft and mostly eats jello and pudding. Pt is able to swallow pills but most of time unwilling now. Pt able to sit up in bed on own and is using call light appropriately. Plan to use commode for voiding. Care continues
[2017-02-10] MEDS ORDERED: LORazepam 100 mg/100 mL NS 100 MG in IV Premix 1 EACH IV SCH (23:15)
--- NOTE | 2017-02-11 04:52 | NUR ---
Comfort care/ Patient on comfort care. Patient repositioning and care done per family request. Patient moaning and respirations = 24. Morphine drip upped to 4mg/hr per MD order. Ativan given for anxiety/restlessness. Patient fell asleep for about 30 min, then woke up with more moaning and restlessness. Ativan given again. Comfort care MD contacted regarding pain management. MD placed order for continuous IV Ativan. Patient's pulse and respirations started to slow. Patient appeared comfortable at this time. Family at bedside. Patient . Time of 02/11/17 @ 00:20. Patient's belongings signed off to family. Hospitalist, pharmacy, nursing office, and admissions notified. Donor Service called. Body prepared. Transported to [facility] by security.
--- NOTE | 2017-02-11 07:47 | PCM.DC.MED ---
Discharge Summary Date of Service Feb 11, 2017 Dates of Hospitalization Date of Hospital Admission Feb 10, 2017 at 16:03 Date of Discharge: Feb 10, 2017 Providers: Admitting Physician: Rudolph Michael MD Primary Care Physician: Austin Lawton MD Attending Physician: Rudolph Michael MD Brief History Patient originally seen in Oncology but then direct admit due to profound weakness, SOB, delirium and pain management. Called to see patient by Dr. Meredith due to above issues. does not feel capable of managing at home. 76 yo patient with known metastatic colon CA and progressive weight loss, anorexia, weakness and now with cough and SOB. Pain is now in fair management with start of methadone at 10 mg TID along with oxycodone 2 mg every 3-4 hours. Starting yesterday she has had hallucinations and some agitation. She has been refusing her meds but her has been able to keep up on her methadone and clonazepam. She is able to sit in a chair for a very short period of time due to weakness. She has been having BM but stopped her senna the past 1-2 days. She has been on an experimental medication which has postponed her ability to be on hospice but has had progression of her ds despite this. Her original dx was mid 2014 with hemicolectomy and ongoing chemotx which failed with progressive ds. 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 Hospital Course 76 y/o female w/ a hx of metastatic colon CA (advanced) on experimental therapy , prior R breast CA, DDD of lumbar spine, osteoporosis, HTN, HLD,being admitted directly from palliative care (Dr. Lazo's office) for comfort care. > End of life care - Metastatic lung cancer - patient was transferred from Dr. Lazo's office for comfort care - patient last night Discharge Medications Discharge Medications ([Fentanyl]) 1 PATCH PATCH 1 PATCH TOPICAL Q3D Prescribed by: NORBERTO JONES MD ([Fentanyl]) 1 PATCH PATCH 1 PATCH TOPICAL Q3D Prescribed by: NORBERTO JONES MD Amlodipine (Amlodipine) 5 Mg Tablet 5 MG PO DAILY (Reported) Citalopram (Citalopram) 20 Mg Tablet 20 MG PO DAILY (Reported) Dexamethasone (Dexamethasone) 4 Mg Tablet 4 MG PO DAILYWM Prescribed by: NORBERTO JONES MD Gabapentin (Gabapentin) 100 Mg Capsule 100-200 MG PO HS (Reported) Lisinopril (Lisinopril) 5 Mg Tablet 5 MG PO HS (Reported) Omeprazole (Omeprazole) 40 Mg Capsule.dr 40 MG PO DAILY (Reported) Pramipexole Dihydrochloride (Mirapex) 0.25 Mg Tablet 0.25-0.5 MG PO HS (Reported ) Tizanidine (Tizanidine) 2 Mg Capsule 2-4 MG PO HS (Reported) Venlafaxine (Venlafaxine) 75 Mg Tablet 75 MG PO TID (Reported) As needed Albuterol HFA (Proair HFA) 8.5 Gm Hfa.aer.ad 2 PUFFS INHALATION QID PRN PRN For Congestion (Reported) Clonazepam (Clonazepam) 0.5 Mg Tablet 0.5 MG PO QID PRN PRN For Anxiety ( Reported) Docusate Calcium (Stool Softener) 240 Mg Capsule 240 MG PO DAILY PRN PRN For Constipation (Reported) Docusate Sodium/Benzocaine (Enemeez Plus Mini Enema) 5 Ml Enema 5 ML RC DIRECTED PRN PRN For Constipation (Reported) Loperamide/Simethicone (Imodium Multi-Symptom Rel Cplt) 1 Each Tablet 1 EACH PO DAILY PRN PRN For Diarrhea or Loose Stool (Reported) Ondansetron (Ondansetron) 8 Mg Tablet 8 MG PO BID PRN PRN For Nausea (Reported) Polyethylene Glycol 3350 (Miralax) 17 Gm Powd.pack 17 GM PO DIRECTED PRN PRN For Constipation (Reported) oxyCODONE (oxyCODONE) 5 Mg Tablet 20 MG PO Q3H PRN PRN For Pain Prescribed by: MD Alec HARRIS Abhinav MD Feb 11, 2017 07:47
--- NOTE | 2017-02-11 07:50 | NUR ---
Palliative Care - Late Entry Verbal order received per Dr Michael 02/10/17 for goals/pain/symptom management. Patient was direct admit from Oncology appt 02/10/17. Patient is well known to the Palliative Care Team. Patient miller kiln dried salt 02/11/17. Nataly Gorman
--- NOTE | 2017-02-11 08:10 | NUR ---
Palliative care note (late note for 02/10/17) D/A: Case discussed with Dr. Lazo. Pt to be a direct [facility] from [facility]. Pt to be comfort care. Unknown if she will here or be able to dc home or elsewhere with Hospice. Dr. Lazo has communicated with Janet at [facility] who was able to find slot for pt for hospice open for Wednesday02/12/17. This worker to follow up on pt tomorrow, Dr. Lazo will not be here but pt to be followed by another provider. P: Palliative care to follow. Opal [facility], CCM
--- NOTE | 2017-02-11 08:15 | NUR ---
Palliative Care note D/A: Pt overnight. Phone call and have left a message for Steph in [facility]. Also called and spoke to Janet insurance office supervisor that agency can open Wednesday spot as pt has . Dr. Lazo aware. P: Palliative care to sign off case. Opal [facility], CCM
--- NOTE | 2017-02-17 14:29 | NUR ---
Palliative care note D/A: Phone call to pt spouse to inquire on how he is doing. He notes that family is working on cleaning out pt belongings. 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 will be 02/20/17 at [facility]. Informed Curtis of the bereavement services available for free for himself or family members through [facility]. Curtis asks this worker to please thank Dr. Lazo for all her work on behalf of [facility]. Note left for Dr. Lazo. Bereavement card sent to Curtis and family this week. P: Palliative care has signed off. Opal [facility], CCM
== END 2017-02-11 00:20 | disposition expired | DRG 948 ==
LOC: OSC 16:03
PROVIDERS: ADMIT Internal Medicine; ATTEND Internal Medicine
DX: G89.3 Neoplasm related pain (acute) (chronic) (principal); Z68.1 Body mass index [BMI] 19.9 or less, adult; C78.5 Secondary malignant neoplasm of large intestine and rectum; R64 Cachexia; Z51.5 Encounter for palliative care; I10 Essential (primary) hypertension; E78.5 Hyperlipidemia, unspecified; G25.81 Restless legs syndrome; M43.02 Spondylolysis, cervical region; M51.36 Other intervertebral disc degeneration, lumbar region; J44.9 Chronic obstructive pulmonary disease, unspecified; Z66 Do not resuscitate; Z87.891 Personal history of nicotine dependence; Z85.3 Personal history of malignant neoplasm of breast